=== PATIENT | female | born 1940 | race Caucasian/White ===

== ENCOUNTER 2018-05-05 08:30 | Inpatient (IN) ==
--- NOTE | 2018-05-05 08:52 | ED ---
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 Continued evolution of the acute infarct involving the left temporoparietal lobe. There is probable hemorrhagic conversion centrally within the area of infarction which measures 3.8 cm in size. No midline shift is noted. . Head CT 05/08/18 00:00 Remote left cerebellar lacunar infarcts. There is hypodensity identified in the left temporal region again seen and not significantly changed. There are no fractures. There is no hyperdense hemorrhage seen. CONCLUSION: 1. Left temporal occipital infarct again seen with edema. 2. No hemorrhage. . Head CT 05/10/18 06:00 CONCLUSION: 1. Continued evolution of left temporal lobe infarct without intercurrent hemorrhage or significant new mass effect. . ECG Data EKG Prior to Arrival: No Attestation: I personally reviewed and interpreted this ECG as follows: Prior ECG tracings: not available for review Interpretation: Normal sinus rhythm, 63 bpm, PACs noted. Left atrial enlargement, Discharge Plan Discharge Disposition Patient Disposition: 30 Still Patient Discharge Condition Condition: Stable Discharge Order Discharge Orders: Discharge Order (Routine); Ordered 05/11/18 Ordered By: Jamal Cardona Discharge Details Anticipated Discharge Date: 05/11/18 Discharge Comment: Will need outpt speech therapy Diagnosis: CVA (cerebral vascular accident) Physicians Team ED Provider: Netpali Rose Primary Care Provider: Serge Black Attending Provider: Jamal Cardona Other Providers: Igor Young ; Zoila Morley ; Wero Conteh ; Rosi Spencer ; Adalberto Monaco ; Anne-Marie Luna ; Benito Garcia Status ED Status: Left Department Discharge Information Discharge Date/Time: 05/05/18 12:59
[2018-05-05 09:03] LABS: Baso % (Auto) 0.2 % (0.0-2.0); Eos # (Auto) 0.1 th/mm3 (0.0-0.4); Hematocrit 42.9 % (35.0-46.0); Hemoglobin 14.6 gm/dL (11.6-15.3); Lymph # (Auto) 1.1 th/mm3 (1.0-4.8); Mean Corpuscular Hemoglobin 30.8 pg (27.0-34.0); Mean Corpuscular Volume 90.8 fL (80.0-100.0); Mean Platelet Volume 8.3 fL (7.0-11.0); Mono # (Auto) 0.6 th/mm3 (0.0-0.9); Neut # (Auto) 6.4 th/mm3 (1.8-7.7); Neut % (Auto) 78.8 % (16.0-70.0); Platelet Count 274 th/mm3 (150-450); Red Blood Count 4.72 mil/mm3 (4.00-5.30); Red Cell Distribution Width 13.1 % (11.6-17.2); White Blood Count 8.2 th/mm3 (4.0-11.0)
[2018-05-05 09:09] LABS: Chloride 99 meq/L (98-107); Potassium 3.6 meq/L (3.5-5.1); Sodium 133 meq/L (136-145)
[2018-05-05 09:12] LABS: Albumin 3.8 g/dL (3.4-5.0); Anion Gap 10 meq/L (5-15); Calcium 8.9 mg/dL (8.5-10.1); Carbon Dioxide 24.2 meq/L (21.0-32.0)
[2018-05-05 09:13] LABS: Blood Urea Nitrogen 11 mg/dL (7-18); Glucose,Random 126 mg/dL (74-106)
[2018-05-05 09:14] LABS: Lipase 130 U/L (73-393)
--- NOTE | 2018-05-05 09:15 | XR ---
EXAM DATE: 05/05/2018 9:10 AM EDT AGE/SEX: 77 years / Female INDICATIONS: Chest pain. CLINICAL DATA: This is the patient's initial encounter. Patient reports that signs and symptoms have been present for 2 days and indicates a pain score of 2/10. MEDICAL/SURGICAL HISTORY: None. Appendectomy. COMPARISON: No prior exams available for comparison. FINDINGS: A single AP view of the chest demonstrates the lungs to be symmetrically aerated without evidence of mass, infiltrate or effusion. The cardiomediastinal contours are unremarkable. Osseous structures a re intact. Possible gallstone. CONCLUSION: Negative examination. Electronically signed by: Koby Hall MD 05/05/2018 9:14 AM EDT
[2018-05-05 09:16] LABS: Alanine Aminotransferase 27 U/L (10-53); Aspartate Aminotransferase 21 U/L (15-37); Glomerular Filtration Rate 65 mL/min (>89)
--- NOTE | 2018-05-05 09:16 | CT ---
EXAM DATE: 05/05/2018 9:10 AM EDT AGE/SEX: 77 years / Female INDICATIONS: Altered mental status. Short term memory loss. Cephalgia. CLINICAL DATA: This is the patient's initial encounter. Patient reports that signs and symptoms have been present for 1 day and indicates a pain score of 5/10. MEDICAL/SURGICAL HISTORY: None. Appendectomy. RADIATION DOSE: 59.54 CTDI (mGy) COMPARISON: No prior exams available for comparison. TECHNIQUE: CT of the head without contrast. Using automated exposure control and adjustment of the mA and/or kV according to patient size, radiation dose was kept as low as reasonably achievable to ob tain optimal diagnostic quality images. DICOM format image data is available electronically for revi ew and comparison. FINDINGS: Cerebrum: There is evidence of cytotoxic edema involving the left temporoparietal lobe consistent wi th possible acute infarct. Underlying lesion with adjacent edema is also the differential. MRI of the brain with and without contrast would be helpful for further characterization of this process. There is no acute hemorrhage, midline shift or extra-axial bleed. The ventricles are normal in size shape and position for the patient's age. Posterior Fossa: The cerebellum and brainstem are intact. The 4th ventricle is midline. The cerebe llopontine angle is unremarkable. Extracranial: The visualized portion of the orbits is intact. Skull: The calvaria is intact. No evidence of skull fracture. CONCLUSION: 1. Evidence of cytotoxic edema involving the left temporoparietal lobe consistent with possible acut e infarct. Underlying lesion with adjacent edema is also the differential. MRI of the brain with and without contrast would be helpful for further characterization of this process. 2. No acute hemorrhage, midline shift or extra-axial bleed. . Electronically signed by: John Yoder MD 05/05/2018 9:15 AM EDT
[2018-05-05 09:17] LABS: Total Protein 7.4 g/dL (6.4-8.2)
[2018-05-05 09:18] LABS: Alkaline Phosphatase 67 U/L (45-117)
[2018-05-05 09:20] LABS: Activated Partial Thrombo Time 25.2 sec (24.3-30.1); Prothrombin Time 10.6 sec (9.8-11.6)
[2018-05-05 09:24] LABS: Creatine Kinase 62 U/L (26-192)
--- NOTE | 2018-05-05 10:22 | CT ---
EXAM DATE: 05/05/2018 10:14 AM EDT AGE/SEX: 77 years / Female INDICATIONS: Altered mental status. Abnormal CT brain w/o. CLINICAL DATA: This is the patient's initial encounter. Patient reports that signs and symptoms have been present for 1 day and indicates a pain score of 5/10. MEDICAL/SURGICAL HISTORY: None. Appendectomy. RADIATION DOSE: 42.23 CTDI (mGy) COMPARISON: [facility], CT HEAD W/O CONTRAST, 05/05/2018. . TECHNIQUE: Volumetric scanning was performed using a multi-row detector CT scanner during bolus infu iris of 85 ml Omnipaque 350 (iohexol) nonionic water-soluble contrast as a cumulative dose for multi ple exams. The data was post processed with a variety of visualization algorithms including full vo lume maximum intensity projection, multi-planar sliding thin slab reformation, curved planar reformat ion, and surface rendering techniques. Using automated exposure control and adjustment of the mA and /or kV according to patient size, radiation dose was kept as low as reasonably achievable to obtain o ptimal diagnostic quality images. DICOM format image data is available electronically for review and comparison. FINDINGS: Anterior Circulation: Intracranial Carotid Arteries: Patent. SOFIA: Asymmetric small left A1 segment, likely hyperplastic. There is no evidence for aneurysm, vessel truncation or stenosis, and no evidence for vascular malformation. MCA: There is no evidence for aneurysm, vessel truncation or stenosis, and no evidence for vascular m alformation. Posterior Circulation: Distal Vertebral Arteries: Distal Vertebral arteries are symetrical and patent. Basilar Artery: There is no evidence for aneurysm, vessel truncation or stenosis, and no evidence for vascular malformation. PROPERTY CUSTODIAN and Cerebellar Branches: There is no evidence for aneurysm, vessel truncation or stenosis, and no evidence for vascular malformation. CONCLUSION: 1. Unremarkable head CT examination without evidence for large vessel occlusion. Electronically signed by: Juliocesar Mahmood MD 05/05/2018 10:20 AM EDT
--- NOTE | 2018-05-05 10:50 | CT ---
EXAM DATE: 05/05/2018 10:36 AM EDT AGE/SEX: 77 years / Female INDICATIONS: Altered mental status. Abnormal CT brain w/o. CLINICAL DATA: This is the patient's initial encounter. Patient reports that signs and symptoms have been present for 1 day and indicates a pain score of 5/10. MEDICAL/SURGICAL HISTORY: None. Appendectomy. RADIATION DOSE: 42.23 CTDI (mGy) ; Combined studies COMPARISON: No prior exams available for comparison. TECHNIQUE: Volumetric scanning was performed using a multirow detector CT scanner during bolus infus ion of 85 ml Omnipaque 350 (iohexol) nonionic water-soluble contrast as a cumulative dose for multip le exams. The data was postprocessed with a variety of visualization algorithms including full-volu me maximum intensity projection, multiplanar sliding thin-slab reformation, curved-planar reformation , and surface-rendering techniques. Using automated exposure control and adjustment of the mA and/or kV according to patient size, radiation dose was kept as low as reasonably achievable to obtain opti mal diagnostic quality images. DICOM format image data is available electronically for review and co mparison. FINDINGS: Aortic Arch: There is a three-vessel origin of the great vessels from the aorta. No evidence of ost ial narrowing Right Carotid: The common carotid artery is intact. The carotid bulb has a normal configuration wit hout ulceration or narrowing. The internal carotid artery lumen is smooth without stenosis. The ext ernal carotid artery is intact. Left Carotid: The common carotid artery is intact. The carotid bulb has a normal configuration with out ulceration or narrowing. The internal carotid artery lumen is smooth without stenosis. The exte rnal carotid artery is intact. Vertebrals: The vertebral arteries have a symmetric diameter. No stenotic lesions are seen. Percent stenosis is calculated using the diameter of the stenotic region over the diameter of the nor mal distal internal carotid artery. CONCLUSION: 1. Negative CTA Carotid. Electronically signed by: Koby Hall MD 05/05/2018 10:48 AM EDT
[2018-05-05] MEDS ORDERED: Dextrose 50% in Water 50 ML Vial IV.PUSH PRN (12:21)
[2018-05-05] MEDS ORDERED: Acetaminophen 325 MG Tablet PO PRN (12:27)
[2018-05-05] MEDS ORDERED: Docusate Sodium 100 MG Capsule PO PRN (12:27)
[2018-05-05] MEDS ORDERED: Aluminum/Magnesium/Simethacone Susp 30 ML UDC PO PRN (12:27)
[2018-05-05] MEDS ORDERED: Senna/Docusate Sodium 8.6/50 MG Tablet PO PRN (12:27)
[2018-05-05] MEDS: Sod Chloride 0.9% Inj 1,000 ML IV.CONT SCH (12:30)
--- NOTE | 2018-05-05 16:05 | P.HP ---
History of Present Illness Primary Care Physician: Serge Black Chief Complaint: Confusion History of Present Illness: This is a 77-year-old female who was brought in by her because of confusion. History is mainly taken from family members at bedside and nursing staff. is not available. She has history of hyperlipidemia and hypothyroidism. Started 2 days ago when she was noted to be confused and disoriented. Symptoms persisted prompting ER evaluation. No fever, chills, cough, abdominal pain, UTI symptoms and diarrhea. At this time she is awake but has receptive aphasia. She is intermittently following commands moving all extremities. Workup shows edema involving the left temporoparietal lobe consistent with possible acute infarct. NIH score of 3. Patient passed swallowing evaluation by speech therapy. All other systems reviewed negative. Inpatient Certification: I certify that the inpatient services were ordered in accordance with Medicare regulations governing the order. This includes certification that hospital inpatient services are reasonable and necessary and in the case of services not specified as inpatient-only under 42 CFR 419.22(n), that they are appropriately provided as inpatient services in accordance to with the 2-midnight benchmark under 43 CFR 412.3(e) Estimated Total Length of Stay (Days): 2 Plans for Post Hospital Care: Not yet determined Review of Systems All other systems reviewed negative except as stated in HPI PMFSH - History History Provided By: Significant Other - Medical History Medical History: Medical History (Last Reviewed 05/05/18 @ 16:02 by Lonnie Hedrick MD) Cataracts, bilateral Thyroid disease - Surgical History Surgical History: Surgical History (Last Reviewed 05/05/18 @ 16:02 by Lonnie Hedrick MD) History of appendectomy Previous back surgery - Family History Family History: Family History (Last Updated 05/05/18 @ 16:02 by Lonnie Hedrick MD) Other No history of stroke - Tobacco History Second Hand Smoke Exposure: No Smoking Status: Never smoker - Alcohol History How Often Do You Have a Drink Containing Alcohol: Never - Substance Use History Substance History: No History of Abuse - Travel History Recent Travel in the [facility] Within the Last 8 Weeks: No - Immunization History Tetanus Immunization: >5 Years Hx Influenza Vaccine This Season: Yes Medications and Allergies Active Medications: Active Medications Acetaminophen (Tylenol) 650 mg PO Q4H PRN PRN Reason: Temp > 100.4 Al Hydrox/Mg Hydrox/Simethicone (Mag-Al Plus Susp Liq) 30 ml PO Q6H PRN PRN Reason: DYSPEPSIA Al Hydroxide/Mg Hydroxide (Milk Of Magnesia Liq) 30 ml PO DAILY PRN PRN Reason: SEVERE CONSITIPATION Aspirin (Aspirin) 325 mg PO DAILY CORBY Calcium Carbonate (Tums Chew) 1,000 mg CHEW TID PRN PRN Reason: DYSPEPSIA Dextrose (D50w Vial) 50 ml IV.PUSH UNSCH PRN PRN Reason: PER HYPOGLYCEMIA PROTOCOL Docusate Sodium (Colace) 100 mg PO BID PRN PRN Reason: CONSTIPATION Enalaprilat (Vasotec Inj) 1.25 mg IV.PUSH Q4H PRN PRN Reason: For SBP > 220 or DBP > 120 Glucagon (Glucagon Inj) 1 mg OTHER UNSCH PRN PRN Reason: for Hypoglycemia Protocol Sodium Chloride (Ns Inj) 1,000 mls @ 70 mls/hr IV.CONT .[id number] CORBY Insulin Aspart (Novolog Insulin Correctional Sugar Inj) 0 unit SQ ACHS CORBY; Protocol Ondansetron HCl (Zofran Inj) 4 mg IV.PUSH Q6H PRN PRN Reason: NAUSEA Senna/Docusate Sodium (Ana-Colace) 1 tab PO BID PRN PRN Reason: CONSTIPATION Sodium Chloride (Ns Flush) 2 ml IV.FLUSH BID CORBY Sodium Chloride (Ns Flush) 2 ml IV.FLUSH PRN PRN PRN Reason: FLUSH AFTER USING IV ACCESS Allergies Allergy/AdvReac Type Severity Reaction Status Date / Time No Known Allergies Allergy none Uncoded 05/05/18 09:35 Home Medications Medication Instructions Recorded Confirmed Type atorvastatin 20 mg PO DAILY 05/05/18 05/05/18 History Exam Vital signs: Vital Signs 05/05/18 08:48 05/05/18 08:49 05/05/18 09:00 Temperature 98.5 F Pulse Rate 62 Respiratory Rate 16 Blood Pressure 139/67 Pulse Oximetry 96 96 95 05/05/18 09:25 05/05/18 10:40 05/05/18 11:23 Temperature Pulse Rate 57 L 62 61 Respiratory Rate 16 16 17 Blood Pressure 123/71 117/58 L 117/58 L Pulse Oximetry 95 96 97 05/05/18 12:21 05/05/18 15:15 Temperature Pulse Rate 65 Respiratory Rate 16 Blood Pressure 118/58 L Pulse Oximetry 98 Intake & Output 05/04/18 05/05/18 05/05/18 18:59 06:59 18:59 Weight 63 kg Narrative: GENERAL: Well-developed, well-nourished in no distress SKIN: Warm and dry. HEAD: Atraumatic. Normocephalic. EYES: Pupils equal and round. No scleral icterus. No injection or drainage. ENT: No nasal bleeding or discharge. Mucous membranes pink and moist. NECK: Trachea midline. No JVD. CARDIOVASCULAR: Regular rate and rhythm. RESPIRATORY: No accessory muscle use. Clear to auscultation. Breath sounds equal bilaterally. GASTROINTESTINAL: Abdomen soft, non-tender, nondistended. MUSCULOSKELETAL: Extremities without clubbing, cyanosis, or edema. No obvious deformities. NEUROLOGICAL: Awake and alert. No obvious cranial nerve deficits. Motor grossly within normal limits. Five out of 5 muscle strength in the arms and legs. Normal speech. She has expressive aphasia Results - Labs CBC & Chem 7: 05/05/18 08:58 05/05/18 08:58 Labs: Laboratory Results - last 24 hr 05/05/18 05/05/18 05/05/18 08:58 08:58 08:58 CBC w Diff Auto diff final WBC 8.2 RBC 4.72 Hgb 14.6 Hct 42.9 MCV 90.8 MCH 30.8 MCHC 34.0 RDW 13.1 Plt Count 274 MPV 8.3 Neut % (Auto) 78.8 H Lymph % (Auto) 13.0 [place] % (Auto) 7.0 Eos % (Auto) 1.0 Baso % (Auto) 0.2 Neut # (Auto) 6.4 Lymph # (Auto) 1.1 [place] # (Auto) 0.6 Eos # (Auto) 0.1 Baso # (Auto) 0.0 WBC Differential . Differential Comment . PT INR APTT Sodium Potassium Chloride Carbon Dioxide Anion Gap BUN Creatinine Estimated GFR POC Glucose Random Glucose Calcium Total Bilirubin AST ALT Alkaline Phosphatase Total Creatine Kinase Troponin I B-Natriuretic Peptide 67 Total Protein Albumin Lipase 130 Serum Alcohol Less than 3 05/05/18 05/05/18 05/05/18 08:58 08:58 12:47 CBC w Diff WBC RBC Hgb Hct MCV MCH MCHC RDW Plt Count MPV Neut % (Auto) Lymph % (Auto) [place] % (Auto) Eos % (Auto) Baso % (Auto) Neut # (Auto) Lymph # (Auto) [place] # (Auto) Eos # (Auto) Baso # (Auto) WBC Differential Differential Comment PT 10.6 INR 1.0 APTT 25.2 Sodium 133 L Potassium 3.6 Chloride 99 Carbon Dioxide 24.2 Anion Gap 10 BUN 11 Creatinine 0.85 Estimated GFR 65 L POC Glucose 102 Random Glucose 126 H Calcium 8.9 Total Bilirubin 0.7 AST 21 ALT 27 Alkaline Phosphatase 67 Total Creatine Kinase 62 Troponin I Less than 0.02 L B-Natriuretic Peptide Total Protein 7.4 Albumin 3.8 Lipase Serum Alcohol - Imaging Impressions Head CT 05/05/18 08:48 CONCLUSION: 1. Evidence of cytotoxic edema involving the left temporoparietal lobe consistent with possible acute infarct. Underlying lesion with adjacent edema is also the differential. MRI of the brain with and without contrast would be helpful for further characterization of this process. 2. No acute hemorrhage, midline shift or extra-axial bleed. . Chest X-Ray 05/05/18 08:49 CONCLUSION: Negative examination. Head CTA 05/05/18 09:32 CONCLUSION: 1. Unremarkable head CT examination without evidence for large vessel occlusion. Neck CTA 05/05/18 09:32 CONCLUSION: 1. Negative CTA Carotid. Caprini VTE Risk Assessment Caprini VTE Risk Assessment: Moderate/High Risk (score >= 2) Caprini Risk Assessment Model: Point Value = 1 Point Value = 2 Point Value = 3 Point Value = 5 Age 41-60 Minor surgery BMI > 25 kg/m2 Swollen legs Varicose veins or History of unexplained or recurrent spontaneous Oral contraceptives or hormone replacement Sepsis (< 1 month) Serious lung disease, including pneumonia (< 1 month) Abnormal pulmonary function Acute myocardial infarction Congestive heart failure (< 1 month) History of inflammatory bowel disease Medical patient at bed rest Age 61-74 Arthroscopic surgery Major open surgery (> 45 min) Laparoscopic surgery (> 45 min) Malignancy Confined to bed (> 72 hours) Immobilizing plaster cast Central venous access Age >= 75 History of VTE Family history of VTE Factor V Leiden Prothrombin [id number] Lupus anticoagulant Anticardiolipin antibodies Elevated serum homocysteine Heparin-induced thrombocytopenia Other congenital or acquired thrombophilia Stroke (< 1 month) Elective arthroplasty Hip, pelvis, or leg fracture Acute spinal cord injury (< 1 month) Prophylaxis Regimen: Total Risk Factor Score Risk Level Prophylaxis Regimen 0-1 Low Early ambulation 2 Moderate Order ONE of the following: *Sequential Compression Device (SCD) *Heparin 5000 units SQ BID 3-4 Higher Order ONE of the following medications: *Heparin 5000 units SQ TID *Enoxaparin/Lovenox 40 mg SQ daily (WT < 150 kg, CrCl > 30 mL/min) *Enoxaparin/Lovenox 30 mg SQ daily (WT < 150 kg, CrCl > 10-29 mL/min) *Enoxaparin/Lovenox 30 mg SQ BID (WT < 150 kg, CrCl > 30 mL/min) AND/OR *Sequential Compression Device (SCD) 5 or more Highest Order ONE of the following medications: *Heparin 5000 units SQ TID (Preferred with Epidurals) *Enoxaparin/Lovenox 40 mg SQ daily (WT < 150 kg, CrCl > 30 mL/min) *Enoxaparin/Lovenox 30 mg SQ daily (WT < 150 kg, CrCl > 10-29 mL/min) *Enoxaparin/Lovenox 30 mg SQ BID (WT < 150 kg, CrCl > 30 mL/min) AND *Sequential Compression Device (SCD) Assessment and Plan - Plan This is a 77-year-old female who was brought in by her because of confusion. History is mainly taken from family members at bedside and nursing staff. is not available. She has history of hyperlipidemia and hypothyroidism. Started 2 days ago when she was noted to be confused and disoriented. Acute CVA with cytotoxic edema involving the left temporoparietal. Admit patient for stroke workup. Permissive hypertension with IV fluids. Risk factor modification obtain A1c and lipid profile. Obtain MRI of the brain and echocardiogram. Monitor on telemetry. Consult neurology, PT, OT and ST DVT prophylaxis with SCD and early ambulation. Pharmacological prophylaxis when cleared by neurology. Discharge Planning: [facility] vs rehab
[2018-05-05] MEDS ORDERED: Gadobutrol PF 2 MMOL/2 ML Vial (for RAD) IV.SIG ONE (16:39)
--- NOTE | 2018-05-05 16:51 | MR ---
EXAM DATE: 05/05/2018 4:39 PM EDT AGE/SEX: 77 years / Female INDICATIONS: CVA. Lack of comprehension. CLINICAL DATA: This is the patient's initial encounter. Patient reports that signs and symptoms have been present for 1 day and indicates a pain score of 0/10. MEDICAL/SURGICAL HISTORY: None. Appendectomy. COMPARISON: [facility], CTA HEAD W CONTRAST W 3D, 05/05/2018. . TECHNIQUE: Multiplanar, multisequence examination of the brain was performed without and with 5.5 ml Gadavist (gadobutrol) contrast as a single exam dose. FINDINGS: Cerebrum: There is a large left temporal stroke measuring 3.5 x 6.8 cm across. Corresponds with a la rge area of cytotoxic edema on the FLAIR images and T2 images. No additional lesions are identified. White Matter: No significant signal abnormalities are seen in the white matter. Posterior Fossa: The cerebellum and brainstem are intact. The 4th ventricle is midline. The cerebel lopontine angle is unremarkable. The cerebellar tonsils are normal in position. Diffusion Imaging: Large abnormality left temporal lobe as described above Extracranial: The visuali zed portions of the orbits and paranasal sinuses are unremarkable. Post Contrast: No abnormal areas of parenchymal or dural enhancement. No evidence of blood-brain ba rrier breakdown. CONCLUSION: 1. Large left temporal stroke as described above. Corresponds well with the CT scan abnormality. The re is some decreased signal within the central areas of stroke on the gradient images. Electronically signed by: Koby Hall MD 05/05/2018 4:49 PM EDT
[2018-05-05] MEDS: Insulin NovoLOG Aspart Correctional Sugar Inj SQ SCH ×2 (19:15→22:20)
--- NOTE | 2018-05-05 21:59 | MG ---
cc: Nitesh Martinez MD EEG RECORD NUMBER: [id number] Asymmetric left hemispheric slowing, delta-theta frequencies, 20-50 microvolts. Right posterior rhythm showing 7-9 Hz activity with good anterior to posterior gradient. Polymorphic right frontotemporal slowing. Occasional mild phase reversal, example EPOC 103. Limited driving with photic stimulation on the left. Single lead EKG showing sinus rhythm. INTERPRETATION: Moderate focal slowing, left frontotemporal region. Clinical correlation. MD ISIDRO Bender/tiana , 09:29 PM , 09:34 PM
--- NOTE | 2018-05-05 22:04 | MB ---
cc: Igor Young MD, PhD DATE: 05/05/2018 REASON FOR CONSULTATION: Stroke. HISTORY OF PRESENT ILLNESS: Ms. Jackson is a 77-year-old female who was in her usual state of health until yesterday at 7:30 p.m. when she developed difficulty with her speech, trouble with comprehension, and repeating phrases over again. No focal deficit was identified. She presented to the emergency room today. NIH stroke scale was 3. Because of the aphasia, we obtained a CT angiogram. We also obtained a CT of the brain. CT of the head showed cytotoxic edema in the left temporoparietal lobe, consistent with acute stroke. No hemorrhage was identified. CT angiogram of the brain was unremarkable for any large vessel occlusion, and CT angiogram of the neck was normal. Because of the negative CTA of the brain, we did not proceed with CT perfusion study. PAST MEDICAL HISTORY: She has a history of cataracts, thyroid disease, appendectomy, back surgery. SOCIAL HISTORY: She does not smoke. Alcohol intake is rare. CURRENT MEDICATIONS: 1. Tylenol. 2. Milk of magnesia. 3. Aspirin 325 mg daily. 4. Lipitor 20 mg daily. PHYSICAL EXAMINATION: VITAL SIGNS: Blood pressure is 106/51, pulse is 58, respiratory rate is 16. She is in normal sinus rhythm. NEUROLOGIC: Higher cortical functions are alert. She has receptive aphasia, difficulty following commands. She repeats phrases. Cranial nerves intact. Motor exam: No focal deficit. Reflexes are symmetric. IMAGING: As noted above. LABORATORY DATA: White count is 8200, hemoglobin 14.6, hematocrit 42.9%, platelet count 274,000. PT 10.6, INR 1, aPTT 25.2. Sodium is 133, potassium 3.6, chloride 99, BUN is 11, creatinine 0.85, GFR 65, glucose 126. AST 21, ALT 27. EKG: Sinus rhythm. MRI of the brain: Large left temporal stroke. No hemorrhage. It measures 3.5 x 6.8 cm across. Fourth ventricle is midline. IMPRESSION: Left temporal lobe/parietal lobe infarction. The patient was not a candidate for IV tPA as she was well out of the 4-1/2 hour window. We did evaluate her further for the possibility of large vessel occlusion, but there was none seen on the CT angiogram. Therefore, she did not require further evaluation with CT perfusion. RECOMMENDATION: Continue head of bed flat overnight. Continue the aspirin. We will evaluate further with echocardiogram. Monitor cardiac telemetry to rule out atrial fibrillation. We will also check lipid panel. Igor Young MD, PhD MARI/tiana , 09:29 PM , 09:38 PM
[2018-05-05] MEDS ORDERED: Aspirin 300 MG Supp RECTAL SCH (22:30)
[2018-05-06 05:12] LABS: Potassium 3.5 meq/L (3.5-5.1)
[2018-05-06 05:15] LABS: Calcium 8.2 mg/dL (8.5-10.1); Carbon Dioxide 25.4 meq/L (21.0-32.0)
[2018-05-06] MEDS: Sod Chloride 0.9% Inj 1,000 ML IV.CONT SCH ×2 (05:19→16:37)
[2018-05-06] MEDS ORDERED: Aspirin 325 MG Tablet PO SCH (09:00)
[2018-05-06] MEDS ORDERED: Aspirin 300 MG Supp RECTAL SCH (09:00)
--- NOTE | 2018-05-06 10:31 | ECHRPT ---
Indication: CVA/TIA CONCLUSIONS Normal left ventricular size. Wall thickness is normal. The left ventricular systolic function is normal with an estimated ejection fraction in the range of 55-60%. Trace mitral valve regurgitation. Mild aortic valve regurgitation. There is mild tricuspid valve regurgitation. The estimated pulmonary arterial pressure is 31 mmHg. BP: / HR: Rhythm: Sinus Technical Quality:Fair FINDINGS LEFT VENTRICLE Normal left ventricular size. Wall thickness is normal. The left ventricular systolic function is normal with an estimated ejection fraction in the range of 55-60%. RIGHT VENTRICLE Normal right ventricular size and systolic function. LEFT ATRIUM The left atrial size is normal. RIGHT ATRIUM The right atrial size is normal. ATRIAL SEPTUM No atrial level shunt is demonstrated by color flow Doppler interrogation. AORTA The aortic root and proximal ascending aorta are normal in size on limited imaging. MITRAL VALVE Trace mitral valve regurgitation. AORTIC VALVE Mild aortic valve regurgitation. TRICUSPID VALVE There is mild tricuspid valve regurgitation. The estimated pulmonary arterial pressure is 31 mmHg. PULMONARY VALVE No pulmonary valve regurgitation or stenosis. VESSELS The inferior vena cava is normal in size. PERICARDIUM No pericardial effusion. Natalie Dominguez MD, FACC (Electronically Signed) Final Date:06 May 2018 10:30
[2018-05-06 10:50] LABS: Chol/HDL Ratio 3.05 Ratio; HDL Cholesterol 44.8 mg/dL (40.0-60.0)
[2018-05-06] MEDS: Insulin NovoLOG Aspart Correctional Sugar Inj SQ SCH ×3 (11:03→16:38)
--- NOTE | 2018-05-06 11:12 | P.CONCC ---
History of Present Illness Service: Critical care Consult date: 05/06/18 Requesting Physician: Igor Young Reason for Consult: Large left temporal stroke Primary Care Provider: Serge Black Chief Complaint: Confusion History of Present Illness: This is a 77-year-old female with history of dyslipidemia and hypothyroidism who was initially brought to the [place] emergency department by her for confusion. Apparently symptoms started 2 days ago when she was noted to be confused and disoriented. She presented with receptive aphasia also per admit H&P. CT of the brain on admission showed cytotoxic edema involving the left temporoparietal lobe consistent with acute infarct. Because of unknown duration of onset patient was not given TPA. Patient was admitted to [place] ICU under hospitalist service. An MRI of the brain was ordered by neurology Dr. Young showed a Large left temporal stroke MRI. Because of the risk of further swelling with possible mass-effect and risk of hemorrhagic conversion, patient was transferred to [facility] for neurosurgical backup and critical care consult was requested I evaluated the patient in the [facility]. She is lying in bed protecting airway. She is oriented to person but appears to have receptive and expressive aphasia. Review of Systems unobtainable due to mental status PMFSH - History History Provided By: Significant Other - Medical History Medical History: Medical History (Last Reviewed 05/06/18 @ 11:34 by Rosi Spencer MD) Cataracts, bilateral Thyroid disease - Surgical History Surgical History: Surgical History (Last Reviewed 05/06/18 @ 11:34 by Rosi Spencer MD) History of appendectomy Previous back surgery - Family History Family History: Family History (Last Updated 05/05/18 @ 16:02 by Lonnie Hedrick MD) Other No history of stroke - Tobacco History Second Hand Smoke Exposure: No Smoking Status: Never smoker - Alcohol History How Often Do You Have a Drink Containing Alcohol: Never - Substance Use History Substance History: No History of Abuse - Travel History Recent Travel in the [facility] Within the Last 8 Weeks: No - Immunization History Tetanus Immunization: >5 Years Hx Influenza Vaccine This Season: Yes Medications and Allergies Active Medications: Active Medications Acetaminophen (Tylenol) 650 mg PO Q4H PRN PRN Reason: Temp > 100.4 Al Hydrox/Mg Hydrox/Simethicone (Mag-Al Plus Susp Liq) 30 ml PO Q6H PRN PRN Reason: DYSPEPSIA Al Hydroxide/Mg Hydroxide (Milk Of Anatoliy Wills) 30 ml PO DAILY PRN PRN Reason: SEVERE CONSITIPATION Aspirin (Aspirin Supp) 300 mg RECTAL DAILY [facility] Atorvastatin Calcium (Lipitor) 20 mg PO DAILY [facility] Last Admin: 05/06/18 11:03 Dose: Not Given Calcium Carbonate (Tums Chew) 1,000 mg CHEW TID PRN PRN Reason: DYSPEPSIA Chlorhexidine Gluconate (Chlorhexidine 2% Cloth) 3 pack TOPICAL DAILY@0400 [facility] Stop: 05/12/18 03:59 Chlorhexidine Gluconate (Chlorhexidine 2% Cloth) 3 pack TOPICAL DAILY@0400 PRN PRN Reason: Extra cloth needed Stop: 05/12/18 03:59 Dextrose (D50w Vial) 50 ml IV.PUSH UNSCH PRN PRN Reason: PER HYPOGLYCEMIA PROTOCOL Docusate Sodium (Colace) 100 mg PO BID PRN PRN Reason: CONSTIPATION Enalaprilat (Vasotec Inj) 1.25 mg IV.PUSH Q4H PRN PRN Reason: For SBP > 220 or DBP > 120 Glucagon (Glucagon Inj) 1 mg OTHER UNSCH PRN PRN Reason: for Hypoglycemia Protocol Sodium Chloride (Ns Inj) 1,000 mls @ 70 mls/hr IV.CONT .[id number] [facility] Last Admin: 05/06/18 05:19 Dose: 70 mls/hr Insulin Aspart (Novolog Insulin Correctional Sugar Inj) 0 unit SQ ACHS [facility]; Protocol Last Admin: 05/06/18 11:03 Dose: Not Given Ondansetron HCl (Zofran Inj) 4 mg IV.PUSH Q6H PRN PRN Reason: NAUSEA Senna/Docusate Sodium (Ana-Colace) 1 tab PO BID PRN PRN Reason: CONSTIPATION Sodium Chloride (Ns Flush) 2 ml IV.FLUSH BID [facility] Last Admin: 05/06/18 11:04 Dose: 2 ml Sodium Chloride (Ns Flush) 2 ml IV.FLUSH PRN PRN PRN Reason: FLUSH AFTER USING IV ACCESS Allergies Allergy/AdvReac Type Severity Reaction Status Date / Time No Known Allergies Allergy none Uncoded 05/05/18 09:35 Home Medications Medication Instructions Recorded Confirmed Type atorvastatin 20 mg PO DAILY 05/05/18 05/05/18 History Physical Exam Vital signs: Vital Signs 05/05/18 11:23 05/05/18 12:21 05/05/18 12:22 Temperature Pulse Rate 61 65 57 L Respiratory Rate 17 16 Blood Pressure 117/58 L 118/58 L Pulse Oximetry 97 05/05/18 14:00 05/05/18 14:30 05/05/18 15:00 Temperature Pulse Rate 58 L 60 62 Respiratory Rate 13 11 L 17 Blood Pressure 115/55 L 116/52 L 117/53 L Pulse Oximetry 95 94 L 95 05/05/18 15:15 05/05/18 15:30 05/05/18 17:00 Temperature Pulse Rate 56 L 52 L Respiratory Rate 28 H 14 Blood Pressure 140/55 L 84/47 L Pulse Oximetry 98 95 94 L 05/05/18 17:07 05/05/18 17:32 05/05/18 18:00 Temperature Pulse Rate 58 L 58 L 60 Respiratory Rate 16 12 20 Blood Pressure 106/51 L 113/48 L 110/52 L Pulse Oximetry 94 L 95 96 05/05/18 18:32 05/05/18 19:00 05/05/18 19:32 Temperature Pulse Rate 58 L 68 64 Respiratory Rate 30 H 21 17 Blood Pressure 113/49 L 111/47 L Pulse Oximetry 95 92 L 93 L 05/05/18 20:00 05/05/18 20:32 05/05/18 21:02 Temperature 97.6 F Pulse Rate 60 60 58 L Respiratory Rate 18 18 19 Blood Pressure 99/43 L 103/47 L 89/46 L Pulse Oximetry 93 L 93 L 94 L 05/05/18 21:17 05/05/18 21:18 05/05/18 22:04 Temperature Pulse Rate 60 58 L 60 Respiratory Rate 23 15 26 H Blood Pressure 113/48 L 117/59 L 101/56 L Pulse Oximetry 95 95 92 L 05/05/18 23:00 05/06/18 00:00 05/06/18 01:00 Temperature 98 F Pulse Rate 58 L 50 L 48 L Respiratory Rate 18 18 17 Blood Pressure 107/47 L 87/51 L 107/48 L Pulse Oximetry 95 94 L 94 L 05/06/18 02:02 05/06/18 03:00 05/06/18 04:00 Temperature 97.5 F L Pulse Rate 48 L 48 L 46 L Respiratory Rate 24 16 13 Blood Pressure 93/53 L 101/47 L 96/49 L Pulse Oximetry 95 94 L 95 05/06/18 05:00 05/06/18 06:00 05/06/18 07:25 Temperature Pulse Rate 52 L 50 L Respiratory Rate 17 14 Blood Pressure 110/55 L 96/42 L Pulse Oximetry 93 L 94 L 98 05/06/18 09:45 Temperature 98.2 F Pulse Rate 53 L Respiratory Rate 18 Blood Pressure 133/58 L Pulse Oximetry 96 Intake & Output 05/05/18 05/06/18 05/06/18 18:59 06:59 18:59 Intake Total 240 / 240 1000 / 1000 Output Total 300 / 300 600 / 600 Balance -60 / -60 400 / 400 Weight 57.9 kg 59.9 kg Intake: IV 1000 / 1000 NS Inj 1,000 ML @ 70 mls/hr IV. 1000 / 1000 CONT .[id number] [facility] Rx#: [id number] Oral 240 / 240 Output: Urine 300 / 300 600 / 600 Other: Date of Last Bowel Movement 05/05/18 05/05/18 05/05/18 Weight On Admission 57.9 kg Narrative: GENERAL: Well-developed, well-nourished lying in bed oriented to person only SKIN: Warm and dry. HEAD: Atraumatic. Normocephalic. EYES: Pupils equal and round. No scleral icterus. No injection or drainage. ENT: No nasal bleeding or discharge. Mucous membranes pink and moist. NECK: Trachea midline. No JVD. CARDIOVASCULAR: Regular rate and rhythm. RESPIRATORY: No accessory muscle use. Clear to auscultation. Breath sounds equal bilaterally. GASTROINTESTINAL: Abdomen soft, non-tender, nondistended. MUSCULOSKELETAL: Extremities without clubbing, cyanosis, or edema. No obvious deformities. NEUROLOGICAL: Awake and alert, able to state her first name cannot tell me her last name. No obvious cranial nerve deficits. Motor grossly intact bilaterally. + Receptive and expressive aphasia. Cannot remember her last name cannot remember where she is OR today date Septic Shock Reassessment Septic shock perfusion: reassessment completed Assessment and Plan - Assessment and Plan Plan: NEURO: Acute left temporal stroke Expressive and receptive aphasia -MRI and CT reviewed shows acute left temporal stroke -Time of onset unclear and patient did not receive TPA, Also CTA negative -Neurology Dr. Young, continue rectal aspirin -Permissive hypertension, treat hypertension systolic more than 220, diastolic more than 120 -PT/OT/speech -Continue statins -Watch closely for swelling and mass-effect, watch closely for airway protection -TSH is normal, check B12 level RESP: -DuoNeb every 6 hours as needed -Aggressive pulmonary toilet. EzPAP q6 -Incentive spirometry every hour CV: -Normal saline IV fluids 70 ml per hour -CTA brain and neck did not show any significant vascular lesions -Blood pressure target as above -Increase Lipitor to 40 mg nightly GI: -Speech pathology consult, diet per speech recommendation, IV famotidine : -Monitor renal function closely. ID: -Monitor closely for infection, check UA HEME: -Monitor CBC, coags ENDO: -Electrolyte replacement per protocol -Sliding scale insulin if needed PROPH: -Bilateral lower extremity SCDs. Avoid chemical DVT prophylaxis due to risk of hemorrhagic conversion LINES: -Utilize peripheral IVs, central line if needed CC time 37 min At this time patient is critically ill. She has a large left temporal stroke and is at risk of further swelling with mass-effect and also for hemorrhagic conversion. Monitor neuro status closely. Continue ICU care. If she develops mass-effect or midline shift may need neurosurgical consult for decompression. D /W Dr. Young Code Status: Full Discussed Condition With: Full
[2018-05-06] MEDS ORDERED: Potassium Chlor 40 mEq Premix 40 MEQ/100 ML PIGGYBACK IV.SIG PRN ×2 (11:15)
[2018-05-06] MEDS ORDERED: Magnesium Sulfate Inj 2 GM in Sodium Chlor 0.9% Inj 96 ML IV.SIG PRN (11:15)
[2018-05-06] MEDS ORDERED: Potassium Chloride 25 MEQ Effervescent Tablet PO PRN (11:15)
[2018-05-06] MEDS ORDERED: Potassium Phosphate Inj 30 MMOL in Sodium Chlor 0.9% Inj 250 ML IV.SIG PRN (11:15)
[2018-05-06] MEDS ORDERED: Sodium Phosphate Inj 30 MMOL in Sodium Chlor 0.9% Inj 250 ML IV.SIG PRN (11:15)
[2018-05-06] MEDS ORDERED: Magnesium Oxide 400 MG Tablet PO PRN (11:15)
[2018-05-06] MEDS ORDERED: Magnesium Sulfate Inj 4 GM in Sodium Chlor 0.9% Inj 92 ML IV.SIG PRN (11:15)
[2018-05-06] MEDS ORDERED: Potassium Phosphate 500 MG Soluble Tablet PO PRN ×2 (11:15)
[2018-05-06] MEDS ORDERED: Potassium Chlor 20 mEq Premix 20 MEQ/100 ML PIGGYBACK IV.SIG PRN ×2 (11:15)
[2018-05-06 16:21] LABS: Hemoglobin A1c 5.8 % (4.3-6.0)
--- NOTE | 2018-05-06 17:18 | ECG ---
Date Performed: 05/05/2018 Time Performed: 08:37:05 PTAGE: 77 years EKG: Sinus rhythm WITH OCCASIONAL SUPRAVENTRICULAR PREMATURE COMPLEXES POSSIBLE LEFT ATRIAL ENLARGEMENT POSSIBLE RIGHT VENTRICULAR CONDUCTION DELAY BORDERLINE ECG NO PREVIOUS TRACING DOCTOR: Alvaro Gutiérrez Interpretating Date/Time 05/06/2018 17:16:11
[2018-05-06 17:36] LABS: Amorphous Sediment,Urine Rare /hpf; Bacteria,Urine Many /hpf; Bilirubin,Urine Negative (Negative); Clarity,Urine Cloudy (Clear); Color,Urine Yellow (Yellw/Straw); Glucose,Urine (UA) Negative (Negative); Hyaline Casts,Urine 2 /lpf (0-3); Leukocyte Esterase,Urine Large (Negative); Mucus,Urine Few /lpf (Occasional); Nitrite,Urine Positive (Negative); Specific Gravity,Urine 1.013 (1.002-1.035); Squamous Epithelial Cell,Urine <1 /hpf (0-5)
--- NOTE | 2018-05-06 21:29 | P.PNNEU ---
Subjective Subjective Comments: No new c/o Active Medications: Active Medications Acetaminophen (Tylenol) 650 mg PO Q4H PRN PRN Reason: Temp > 100.4 Al Hydrox/Mg Hydrox/Simethicone (Mag-Al Plus Susp Liq) 30 ml PO Q6H PRN PRN Reason: DYSPEPSIA Al Hydroxide/Mg Hydroxide (Milk Of Magnesia Liq) 30 ml PO DAILY PRN PRN Reason: SEVERE CONSITIPATION Aspirin (Aspirin Supp) 300 mg RECTAL DAILY [facility] Last Admin: 05/06/18 11:26 Dose: 300 mg Atorvastatin Calcium (Lipitor) 40 mg PO DAILY [facility] Last Admin: 05/06/18 16:37 Dose: Not Given Calcium Carbonate (Tums Chew) 1,000 mg CHEW TID PRN PRN Reason: DYSPEPSIA Chlorhexidine Gluconate (Chlorhexidine 2% Cloth) 3 pack TOPICAL DAILY@0400 [facility] Stop: 05/12/18 03:59 Chlorhexidine Gluconate (Chlorhexidine 2% Cloth) 3 pack TOPICAL DAILY@0400 PRN PRN Reason: Extra cloth needed Stop: 05/12/18 03:59 Docusate Sodium (Colace) 100 mg PO BID PRN PRN Reason: CONSTIPATION Enalaprilat (Vasotec Inj) 1.25 mg IV.PUSH Q4H PRN PRN Reason: For SBP > 220 or DBP > 120 Sodium Chloride (Ns Inj) 1,000 mls @ 70 mls/hr IV.CONT .[id number] [facility] Last Infusion: 05/06/18 20:25 Dose: 70 mls/hr Potassium Chloride (Kcl 40 Meq Premix Inj) 40 meq in 100 mls @ 25 mls/hr IV.SIG Q2H PRN PRN Reason: For Potassium 2.8 - 3.2 mEq/L Potassium Chloride (Kcl 20 Meq Premix Inj) 20 meq in 100 mls @ 50 mls/hr IV.SIG Q2H PRN PRN Reason: For Potassium 3.3 - 3.5 mEq/L Potassium Chloride (Kcl 40 Meq Premix Inj) 40 meq in 100 mls @ 25 mls/hr IV.SIG UNSCH PRN PRN Reason: For Potassium 3.3 - 3.5 mEq/L Sodium Phosphate 30 mmol/ (Sodium Chloride) 260 mls @ 42 mls/hr IV.SIG UNSCH PRN PRN Reason: For Phosphorus < 2.5 mg/dL Potassium Phosphate 30 mmol/ (Sodium Chloride) 260 mls @ 42 mls/hr IV.SIG UNSCH PRN PRN Reason: SEE LABEL COMMENTS Magnesium Sulfate 4 gm/ Sodium (Chloride) 100 mls @ 50 mls/hr IV.SIG UNSCH PRN PRN Reason: For Magnesium 0.9 - 1.1 mg/dL Potassium Chloride (Kcl 20 Meq Premix Inj) 20 meq in 100 mls @ 50 mls/hr IV.SIG Q2H PRN PRN Reason: For Potassium 2.8 - 3.2 mEq/L Magnesium Sulfate 2 gm/ Sodium (Chloride) 100 mls @ 50 mls/hr IV.SIG UNSCH PRN PRN Reason: For Magnesium 1.2 - 1.6 mg/dL Magnesium Oxide (Mag-Ox) 800 mg PO UNSCH PRN PRN Reason: For Magnesium 1.2 - 1.6 mg/dL Ondansetron HCl (Zofran Inj) 4 mg IV.PUSH Q6H PRN PRN Reason: NAUSEA Potassium Bicarb/Potassium Chloride (K-Lyte Cl Eff) 50 meq PO UNSCH PRN PRN Reason: For Potassium 3.3 - 3.5 mEq/L Potassium Phosphate (K-Phos Original) 2,000 mg PO Q4H PRN PRN Reason: Phosphorus Less Than 2.5 mg/dL Potassium Phosphate (K-Phos Original) 2,000 mg PO UNSCH PRN PRN Reason: SEE LABEL COMMENTS Senna/Docusate Sodium (Ana-Colace) 1 tab PO BID PRN PRN Reason: CONSTIPATION Sodium Chloride (Ns Flush) 2 ml IV.FLUSH BID [facility] Last Admin: 05/06/18 20:55 Dose: 2 ml Sodium Chloride (Ns Flush) 2 ml IV.FLUSH PRN PRN PRN Reason: FLUSH AFTER USING IV ACCESS Allergies/Adverse Reactions: Allergies Allergy/AdvReac Type Severity Reaction Status Date / Time No Known Allergies Allergy none Uncoded 05/05/18 09:35 Physical Exam Vital signs: Vital Signs 05/05/18 22:04 05/05/18 23:00 05/06/18 00:00 Temperature 98 F Pulse Rate 60 58 L 50 L Respiratory Rate 26 H 18 18 Blood Pressure 101/56 L 107/47 L 87/51 L Pulse Oximetry 92 L 95 94 L 05/06/18 01:00 05/06/18 02:02 05/06/18 03:00 Temperature Pulse Rate 48 L 48 L 48 L Respiratory Rate 17 24 16 Blood Pressure 107/48 L 93/53 L 101/47 L Pulse Oximetry 94 L 95 94 L 05/06/18 04:00 05/06/18 05:00 05/06/18 06:00 Temperature 97.5 F L Pulse Rate 46 L 52 L 50 L Respiratory Rate 13 17 14 Blood Pressure 96/49 L 110/55 L 96/42 L Pulse Oximetry 95 93 L 94 L 05/06/18 07:25 05/06/18 08:00 05/06/18 09:00 Temperature Pulse Rate 54 L 56 L Respiratory Rate 15 20 Blood Pressure 111/47 L 113/49 L Pulse Oximetry 98 94 L 95 05/06/18 09:45 05/06/18 11:45 05/06/18 12:00 Temperature 98.2 F Pulse Rate 53 L 48 L Respiratory Rate 18 18 13 Blood Pressure 133/58 L Pulse Oximetry 96 97 05/06/18 13:45 05/06/18 15:45 05/06/18 16:00 Temperature 98.5 F Pulse Rate 50 L 46 L 52 L Respiratory Rate 18 18 16 Blood Pressure 124/59 L 111/54 L 128/61 Pulse Oximetry 96 96 96 Intake & Output 05/06/18 05/06/18 05/07/18 06:59 18:59 06:59 Intake Total 1000 / 1000 598 / 598 Output Total 600 / 600 300 / 300 Balance 400 / 400 -300 / -300 598 / 598 Weight 59.9 kg Intake: IV 1000 / 1000 598 / 598 NS Inj 1,000 ML @ 70 mls/hr IV. 1000 / 1000 598 / 598 CONT .[id number] [facility] Rx#: [id number] Output: Urine 600 / 600 300 / 300 Other: Date of Last Bowel Movement 05/05/18 05/05/18 # Bowel Movements 0 - Routine Neurological Exam alert, speech is improved--more fluent and follows commands better CN intact MOTOR 5/5 BUE Objective Laboratory Results - last 24 hr 05/05/18 05/06/18 05/06/18 21:15 04:15 04:30 Sodium 137 Potassium 3.5 Chloride 104 Carbon Dioxide 25.4 Anion Gap 8 BUN 11 Creatinine 0.66 Estimated GFR 87 L POC Glucose 118 H Random Glucose 90 Hemoglobin A1c 5.8 Calcium 8.2 L Triglycerides 124 Cholesterol 137 LDL Cholesterol, Calc 67 HDL Cholesterol 44.8 Cholesterol/HDL Ratio 3.05 Vitamin B12 Urine Color Urine Clarity Urine pH Ur Specific [place] Urine Protein Urine Glucose (UA) Urine Ketones Urine Occult Blood Urine Nitrate Urine Bilirubin Urine Urobilinogen Ur Leukocyte Esterase Urine RBC Urine WBC Ur Squamous Epith Cells Amorphous Sediment Urine Bacteria Hyaline Casts Urine Mucus Micro UA Comment Ur Microscopic Review Urine Culture Comments Nasal Screen MRSA (PCR) 05/06/18 05/06/18 05/06/18 04:30 08:34 11:44 Sodium Potassium Chloride Carbon Dioxide Anion Gap BUN Creatinine Estimated GFR POC Glucose 100 97 Random Glucose Hemoglobin A1c Calcium Triglycerides Cholesterol LDL Cholesterol, Calc HDL Cholesterol Cholesterol/HDL Ratio Vitamin B12 Urine Color Urine Clarity Urine pH Ur Specific [place] Urine Protein Urine Glucose (UA) Urine Ketones Urine Occult Blood Urine Nitrate Urine Bilirubin Urine Urobilinogen Ur Leukocyte Esterase Urine RBC Urine WBC Ur Squamous Epith Cells Amorphous Sediment Urine Bacteria Hyaline Casts Urine Mucus Micro UA Comment Ur Microscopic Review Urine Culture Comments Nasal Screen MRSA (PCR) Not detected 05/06/18 05/06/18 12:41 16:25 Sodium Potassium Chloride Carbon Dioxide Anion Gap BUN Creatinine Estimated GFR POC Glucose Random Glucose Hemoglobin A1c Calcium Triglycerides Cholesterol LDL Cholesterol, Calc HDL Cholesterol Cholesterol/HDL Ratio Vitamin B12 489 Urine Color Yellow Urine Clarity Cloudy H Urine pH 6.0 Ur Specific [place] 1.013 Urine Protein Negative Urine Glucose (UA) Negative Urine Ketones Negative Urine Occult Blood Negative Urine Nitrate Positive H Urine Bilirubin Negative Urine Urobilinogen Less than 2 Ur Leukocyte Esterase Large H Urine RBC 1 Urine WBC Ur Squamous Epith Cells <1 Amorphous Sediment Rare H Urine Bacteria Many H Hyaline Casts 2 Urine Mucus Few H Micro UA Comment Culture indicated Ur Microscopic Review Not Reportable Urine Culture Comments Culture indicated Nasal Screen MRSA (PCR) Diagnostic Tests: echo--no embolic source seen Review/Management - Diagnosis (1) CVA (cerebral vascular accident) Code(s): I63.9 - Cerebral infarction, unspecified Status: Acute Current Visit: Yes - Review/Management Plan: continue asa/ monitor cardiac telemetry close neurochecks. She was transferred to main hospital ICU due to large size of the stroke where there is neurosurgical coverage in event of increasing edema. At this point she is stable and slightly improved neurologically (1) CVA (cerebral vascular accident) Qualifiers: CVA mechanism: unspecified Qualified Code(s): I63.9 - Cerebral infarction, unspecified
[2018-05-07] MEDS: Sod Chloride 0.9% Inj 1,000 ML IV.CONT SCH ×3 (01:17→23:47)
[2018-05-07] MEDS: Chlorhexidine Gluconate 2% 1 Pack (2 Cloths) TOPICAL SCH (03:12)
[2018-05-07] MEDS ORDERED: Chlorhexidine Gluconate 2% 1 Pack (2 Cloths) TOPICAL PRN (04:00)
--- NOTE | 2018-05-07 11:30 | P.PNCC ---
Subjective Subjective Remarks/Hospital Course: This is a 77-year-old female with history of dyslipidemia and hypothyroidism who was initially brought to the [place] emergency department by her for confusion. Apparently symptoms started 2 days ago when she was noted to be confused and disoriented. She presented with receptive aphasia also per admit H&P. CT of the brain on admission showed cytotoxic edema involving the left temporoparietal lobe consistent with acute infarct. Because of unknown duration of onset patient was not given TPA. Patient was admitted to [place] ICU under hospitalist service. An MRI of the brain was ordered by neurology Dr. Young showed a Large left temporal stroke MRI. Because of the risk of further swelling with possible mass-effect and risk of hemorrhagic conversion, patient was transferred to [facility] for neurosurgical backup and critical care consult was requested I evaluated the patient in the [facility]. She is lying in bed protecting airway. She is oriented to person but appears to have receptive and expressive aphasia. SUBJ 05/07: Clinically remained stable overnight. Expressive and receptive aphasia persist. Repeat CT of the head for today. If stable will discuss with Dr. Young about starting chemical DVT prophylaxis with Lovenox. Objective Vital Signs / I&O: Vital Signs 05/06/18 11:45 05/06/18 12:00 05/06/18 13:45 Temperature Pulse Rate 48 L 50 L Respiratory Rate 18 13 18 Blood Pressure 124/59 L Pulse Oximetry 97 96 05/06/18 15:45 05/06/18 16:00 05/06/18 20:00 Temperature 98.5 F 98.0 F Pulse Rate 46 L 52 L 56 L Respiratory Rate 18 16 19 Blood Pressure 111/54 L 128/61 113/54 L Pulse Oximetry 96 96 93 L 05/06/18 21:45 05/07/18 00:00 05/07/18 04:00 Temperature 98.3 F Pulse Rate 53 L 53 L Respiratory Rate 18 25 H 15 Blood Pressure 122/60 142/63 H Pulse Oximetry 94 L 99 05/07/18 05:00 Temperature Pulse Rate 51 L Respiratory Rate 13 Blood Pressure 97/50 L Pulse Oximetry 98 Intake & Output 05/06/18 05/07/18 05/07/18 18:59 06:59 18:59 Intake Total 1000 / 1000 Output Total 300 / 300 550 / 550 Balance -300 / -300 450 / 450 Weight 61.1 kg Intake: IV 1000 / 1000 NS Inj 1,000 ML @ 70 mls/hr IV. 1000 / 1000 CONT .[id number] [facility] Rx#: [id number] Output: Urine 300 / 300 Urine Amount (Catheter) 550 / 550 Female External 550 / 550 Other: Date of Last Bowel Movement 05/05/18 05/05/18 05/05/18 # Bowel Movements 0 0 Result Diagrams: 05/05/18 08:58 05/06/18 04:15 Objective Remarks: GENERAL: Well-developed, well-nourished lying in bed oriented to person only SKIN: Warm and dry. HEAD: Atraumatic. Normocephalic. EYES: Pupils equal and round. No scleral icterus. No injection or drainage. ENT: No nasal bleeding or discharge. Mucous membranes pink and moist. NECK: Trachea midline. No JVD. CARDIOVASCULAR: Regular rate and rhythm. RESPIRATORY: No accessory muscle use. Clear to auscultation. GASTROINTESTINAL: Abdomen soft, non-tender, nondistended. MUSCULOSKELETAL: Extremities without clubbing, cyanosis, or edema. No obvious deformities. NEUROLOGICAL: Awake and alert, oriented to person not to place or time. No obvious cranial nerve deficits. Motor grossly intact bilaterally. + Receptive and expressive aphasia. Assessment and Plan - Assessment and Plan Plan: NEURO: Acute left temporal stroke Expressive and receptive aphasia -MRI and CT reviewed shows acute left temporal stroke -Time of onset unclear and patient did not receive TPA, Also CTA negative -Neurology Dr. Young, continue aspirin -Follow-up CT of the head today -Permissive hypertension, treat hypertension systolic more than 220, diastolic more than 120 -PT/OT/speech, OOB -Continue statins -Watch closely for swelling and mass-effect, watch closely for airway protection -TSH is normal, B12 level normal RESP: -DuoNeb every 6 hours as needed -Aggressive pulmonary toilet. EzPAP q6 -Incentive spirometry every hour CV: -Normal saline IV fluids 70 ml per hour -CTA brain and neck did not show any significant stenosis -Blood pressure target as above -Lipitor to 40 mg nightly GI: -Speech pathology consult, diet per speech recommendation, IV famotidine : -Monitor renal function closely. ID: -Monitor closely for infection HEME: -Monitor CBC, coags ENDO: -Electrolyte replacement per protocol -Sliding scale insulin if needed PROPH: -Bilateral lower extremity SCDs. Avoid chemical DVT prophylaxis due to risk of hemorrhagic conversion -If CT of the head today is negative and cleared by Dr. Young LINES: -Utilize peripheral IVs, central line if needed Level 3 At this time patient is critically ill, but stabilizing. She has a large left temporal stroke and is at risk of further swelling with mass-effect and also for hemorrhagic conversion. Monitor neuro status closely. Continue ICU care. CT head today. D/W Dr. Young
--- NOTE | 2018-05-07 15:08 | CT ---
EXAM DATE: 05/07/2018 3:01 PM EDT AGE/SEX: 77 years / Female INDICATIONS: Stroke 2 days ago CLINICAL DATA: This is the patient's subsequent encounter. Patient reports that signs and symptoms h ave been present for 2 days and indicates a pain score of 0/10. MEDICAL/SURGICAL HISTORY: Stroke. Thyroid disease Appendectomy. RADIATION DOSE: 56.37 CTDI (mGy) COMPARISON: [facility], CT HEAD W/O CONTRAST, 05/05/2018. [facility], MR HEAD W & W/O CONTRAST, 05/05/2018. . TECHNIQUE: CT of the head without contrast. Using automated exposure control and adjustment of the mA and/or kV according to patient size, radiation dose was kept as low as reasonably achievable to ob tain optimal diagnostic quality images. DICOM format image data is available electronically for revi ew and comparison. FINDINGS: Cerebrum: There is continued evolution of the acute infarct involving the left temporoparietal lobe. There is probable hemorrhagic conversion centrally within the area of infarction which measures 3.8 cm in size. No midline shift is noted. Posterior Fossa: The cerebellum and brainstem are intact. The 4th ventricle is midline. The cerebe llopontine angle is unremarkable. Extracranial: The visualized portion of the orbits is intact. Skull: The calvaria is intact. No evidence of skull fracture. CONCLUSION: 1. Continued evolution of the acute infarct involving the left temporoparietal lobe. There is probab le hemorrhagic conversion centrally within the area of infarction which measures 3.8 cm in size. No m idline shift is noted. . Electronically signed by: John Yoder MD 05/07/2018 3:07 PM EDT
--- NOTE | 2018-05-07 19:18 | P.PNNEU ---
Subjective Subjective Comments: no new c/o Active Medications: Active Medications Acetaminophen (Tylenol) 650 mg PO Q4H PRN PRN Reason: Temp > 100.4 Al Hydrox/Mg Hydrox/Simethicone (Mag-Al Plus Susp Liq) 30 ml PO Q6H PRN PRN Reason: DYSPEPSIA Al Hydroxide/Mg Hydroxide (Milk Of Magnesia Liq) 30 ml PO DAILY PRN PRN Reason: SEVERE CONSITIPATION Atorvastatin Calcium (Lipitor) 40 mg PO DAILY [facility] Last Admin: 05/07/18 12:43 Dose: 40 mg Calcium Carbonate (Tums Chew) 1,000 mg CHEW TID PRN PRN Reason: DYSPEPSIA Chlorhexidine Gluconate (Chlorhexidine 2% Cloth) 3 pack TOPICAL DAILY@0400 [facility] Stop: 05/12/18 03:59 Last Admin: 05/07/18 03:12 Dose: 3 pack Chlorhexidine Gluconate (Chlorhexidine 2% Cloth) 3 pack TOPICAL DAILY@0400 PRN PRN Reason: Extra cloth needed Stop: 05/12/18 03:59 Docusate Sodium (Colace) 100 mg PO BID PRN PRN Reason: CONSTIPATION Enalaprilat (Vasotec Inj) 1.25 mg IV.PUSH Q4H PRN PRN Reason: For SBP > 220 or DBP > 120 Sodium Chloride (Ns Inj) 1,000 mls @ 70 mls/hr IV.CONT .[id number] [facility] Last Admin: 05/07/18 01:17 Dose: 70 mls/hr Potassium Chloride (Kcl 40 Meq Premix Inj) 40 meq in 100 mls @ 25 mls/hr IV.SIG Q2H PRN PRN Reason: For Potassium 2.8 - 3.2 mEq/L Potassium Chloride (Kcl 20 Meq Premix Inj) 20 meq in 100 mls @ 50 mls/hr IV.SIG Q2H PRN PRN Reason: For Potassium 3.3 - 3.5 mEq/L Potassium Chloride (Kcl 40 Meq Premix Inj) 40 meq in 100 mls @ 25 mls/hr IV.SIG UNSCH PRN PRN Reason: For Potassium 3.3 - 3.5 mEq/L Sodium Phosphate 30 mmol/ (Sodium Chloride) 260 mls @ 42 mls/hr IV.SIG UNSCH PRN PRN Reason: For Phosphorus < 2.5 mg/dL Potassium Phosphate 30 mmol/ (Sodium Chloride) 260 mls @ 42 mls/hr IV.SIG UNSCH PRN PRN Reason: SEE LABEL COMMENTS Magnesium Sulfate 4 gm/ Sodium (Chloride) 100 mls @ 50 mls/hr IV.SIG UNSCH PRN PRN Reason: For Magnesium 0.9 - 1.1 mg/dL Potassium Chloride (Kcl 20 Meq Premix Inj) 20 meq in 100 mls @ 50 mls/hr IV.SIG Q2H PRN PRN Reason: For Potassium 2.8 - 3.2 mEq/L Magnesium Sulfate 2 gm/ Sodium (Chloride) 100 mls @ 50 mls/hr IV.SIG UNSCH PRN PRN Reason: For Magnesium 1.2 - 1.6 mg/dL Magnesium Oxide (Mag-Ox) 800 mg PO UNSCH PRN PRN Reason: For Magnesium 1.2 - 1.6 mg/dL Ondansetron HCl (Zofran Inj) 4 mg IV.PUSH Q6H PRN PRN Reason: NAUSEA Potassium Bicarb/Potassium Chloride (K-Lyte Cl Eff) 50 meq PO UNSCH PRN PRN Reason: For Potassium 3.3 - 3.5 mEq/L Potassium Phosphate (K-Phos Original) 2,000 mg PO Q4H PRN PRN Reason: Phosphorus Less Than 2.5 mg/dL Potassium Phosphate (K-Phos Original) 2,000 mg PO UNSCH PRN PRN Reason: SEE LABEL COMMENTS Senna/Docusate Sodium (Ana-Colace) 1 tab PO BID PRN PRN Reason: CONSTIPATION Sodium Chloride (Ns Flush) 2 ml IV.FLUSH BID [facility] Last Admin: 05/06/18 20:55 Dose: 2 ml Sodium Chloride (Ns Flush) 2 ml IV.FLUSH PRN PRN PRN Reason: FLUSH AFTER USING IV ACCESS Allergies/Adverse Reactions: Allergies Allergy/AdvReac Type Severity Reaction Status Date / Time No Known Allergies Allergy none Uncoded 05/05/18 09:35 Physical Exam Vital signs: Vital Signs 05/06/18 20:00 05/06/18 21:45 05/07/18 00:00 Temperature 98.0 F 98.3 F Pulse Rate 56 L 53 L 53 L Respiratory Rate 19 18 25 H Blood Pressure 113/54 L 122/60 142/63 H Pulse Oximetry 93 L 94 L 99 05/07/18 04:00 05/07/18 05:00 05/07/18 09:00 Temperature 98 F Pulse Rate 51 L 54 L Respiratory Rate 15 13 Blood Pressure 97/50 L 138/65 Pulse Oximetry 98 95 05/07/18 12:05 05/07/18 13:00 05/07/18 17:00 Temperature 98 F 98 F Pulse Rate 60 Respiratory Rate 18 Blood Pressure 132/60 159/67 H Pulse Oximetry 95 95 96 Intake & Output 05/07/18 05/07/18 05/08/18 06:59 18:59 06:59 Intake Total 1000 / 1000 240 / 240 Output Total 550 / 550 850 / 850 Balance 450 / 450 -610 / -610 Weight 61.1 kg Intake: IV 1000 / 1000 NS Inj 1,000 ML @ 70 mls/hr IV. 1000 / 1000 CONT .[id number] [facility] Rx#: [id number] Oral 240 / 240 Output: Urine 300 / 300 Urine Amount (Catheter) 550 / 550 550 / 550 Female External 550 / 550 550 / 550 Other: Date of Last Bowel Movement 05/05/18 05/05/18 # Bowel Movements 0 0 - Routine Neurological Exam alert, follow commands better. able to repeat phrases. has anomia CN intact MOTOR 5/5 BUE and BLE, no drift, normal fine motor - Urinary Catheter Management Female External Cath placed during this visit: no Objective Radiology Results: CT brain today shows hemorrhage within the left temporal parietal CVA Laboratory Results - last 24 hr 05/06/18 16:25 Urine Color Yellow Urine Clarity Cloudy H Urine pH 6.0 Ur Specific Bryan 1.013 Urine Protein Negative Urine Glucose (UA) Negative Urine Ketones Negative Urine Occult Blood Negative Urine Nitrate Positive H Urine Bilirubin Negative Urine Urobilinogen Less than 2 Ur Leukocyte Esterase Large H Urine RBC 1 Urine WBC Ur Squamous Epith Cells <1 Amorphous Sediment Rare H Urine Bacteria Many H Hyaline Casts 2 Urine Mucus Few H Micro UA Comment Culture indicated Urine Culture Comments Culture indicated Microbiology 05/06/18 16:25 Urine Culture - Preliminary Clean Catch Urine gram negative rods Review/Management - Diagnosis (1) CVA (cerebral vascular accident) Code(s): I63.9 - Cerebral infarction, unspecified Status: Acute Current Visit: Yes - Review/Management Plan: continue monitor in ICU hold asa neurosurgery consult recheck CT brain tomorrow (1) CVA (cerebral vascular accident) Qualifiers: CVA mechanism: unspecified Qualified Code(s): I63.9 - Cerebral infarction, unspecified
[2018-05-08] MEDS: Chlorhexidine Gluconate 2% 1 Pack (2 Cloths) TOPICAL SCH (05:09)
--- NOTE | 2018-05-08 08:51 | P.PNCC ---
Subjective Subjective Remarks/Hospital Course: This is a 77-year-old female with history of dyslipidemia and hypothyroidism who was initially brought to the [place] emergency department by her for confusion. Apparently symptoms started 2 days ago when she was noted to be confused and disoriented. She presented with receptive aphasia also per admit H&P. CT of the brain on admission showed cytotoxic edema involving the left temporoparietal lobe consistent with acute infarct. Because of unknown duration of onset patient was not given TPA. Patient was admitted to [place] ICU under hospitalist service. An MRI of the brain was ordered by neurology Dr. Young showed a Large left temporal stroke MRI. Because of the risk of further swelling with possible mass-effect and risk of hemorrhagic conversion, patient was transferred to [facility] for neurosurgical backup and critical care consult was requested I evaluated the patient in the [facility]. She is lying in bed protecting airway. She is oriented to person but appears to have receptive and expressive aphasia. SUBJ 05/07: Clinically remained stable overnight. Expressive and receptive aphasia persist. Repeat CT of the head for today. If stable will discuss with Dr. Young about starting chemical DVT prophylaxis with Lovenox. 05/08: Hemorrhagic conversion within a left hemispheric ischemic stroke. Expressive and receptive a fascia persist. Hemodynamics acceptable and blood pressure control acceptable. Will cover with ceftriaxone for UTI. Urinalysis on admission consistent with active UTI, unrelated to hospitalization. Objective Vital Signs / I&O: Vital Signs 05/07/18 09:00 05/07/18 12:05 05/07/18 13:00 Temperature 98 F 98 F Pulse Rate 54 L Respiratory Rate 18 Blood Pressure 138/65 132/60 Pulse Oximetry 95 95 95 05/07/18 17:00 05/07/18 19:30 05/07/18 20:00 Temperature 98 F Pulse Rate 60 Respiratory Rate Blood Pressure 159/67 H Pulse Oximetry 96 95 94 L 05/07/18 21:00 05/08/18 00:00 05/08/18 03:28 Temperature 98.4 F 98.1 F Pulse Rate 57 L 56 L Respiratory Rate 21 16 Blood Pressure 115/53 L 120/57 L Pulse Oximetry 96 97 95 05/08/18 04:00 Temperature 98.4 F Pulse Rate 47 L Respiratory Rate 18 Blood Pressure 123/58 L Pulse Oximetry 95 Intake & Output 05/07/18 05/08/18 05/08/18 18:59 06:59 18:59 Intake Total 240 / 240 1000 / 1000 Output Total 850 / 850 600 / 600 Balance -610 / -610 400 / 400 Weight 60 kg Intake: IV 1000 / 1000 NS Inj 1,000 ML @ 70 mls/hr IV. 1000 / 1000 CONT .[id number] [facility] Rx#: [id number] Oral 240 / 240 Output: Urine 300 / 300 Stool 0 / 0 Urine Amount (Catheter) 550 / 550 600 / 600 Female External 550 / 550 600 / 600 Other: Date of Last Bowel Movement 05/05/18 05/05/18 # Bowel Movements 0 Result Diagrams: 05/05/18 08:58 05/06/18 04:15 Objective Remarks: GENERAL: Elderly woman lying in bed oriented to person only SKIN: Warm and dry. HEAD: Atraumatic. Normocephalic. EYES: Pupils equal and round. No scleral icterus. No injection or drainage. ENT: No nasal bleeding or discharge. Mucous membranes pink and moist. NECK: Trachea midline. Airway widely patent, no obstructive noises. CARDIOVASCULAR: Regular rate and rhythm. Normal S1, S2. No JVD. RESPIRATORY: No accessory muscle use. Clear to auscultation. Comfortable respiratory pattern. GASTROINTESTINAL: Abdomen soft, non-tender, nondistended. No guarding. MUSCULOSKELETAL: Extremities without clubbing, cyanosis, or edema. No obvious deformities. Warm, well-perfused. NEUROLOGICAL: Awake and alert, oriented to person. No obvious cranial nerve deficits. Motor function grossly intact bilaterally. + Receptive and expressive aphasia. Assessment and Plan - Assessment and Plan Plan: NEURO: Acute left temporal stroke Expressive and receptive aphasia -MRI and CT reviewed shows acute left temporal stroke -Time of onset unclear and patient did not receive TPA, Also CTA negative -Neurology Dr. Young, continue aspirin -Follow-up CT of the head today -Permissive hypertension, treat hypertension systolic more than 220, diastolic more than 120 -PT/OT/speech, OOB -Continue statins -Watch closely for swelling and mass-effect, watch closely for airway protection -TSH is normal, B12 level normal RESP: -DuoNeb every 6 hours as needed -Aggressive pulmonary toilet. EzPAP q6 -Incentive spirometry every hour CV: -Normal saline IV fluids 70 ml per hour -CTA brain and neck did not show any significant stenosis -Blood pressure target as above -Lipitor to 40 mg nightly -Discontinue fluids when able to take p.o. GI: -Speech pathology consult, diet per speech recommendation, IV famotidine : -Monitor renal function closely. -No Serrano catheter necessary. ID: -Monitor closely for infection -Urinary tract infection present on admission her urinalysis. Now growing gram- negative rods greater than 100,000. -Start ceftriaxone 1 g daily. No indwelling catheters. HEME: -Monitor CBC, coags ENDO: -Electrolyte replacement per protocol -Sliding scale insulin if needed PROPH: -Bilateral lower extremity SCDs. Avoid chemical DVT prophylaxis due to hemorrhagic conversion of CVA. LINES: -Utilize peripheral IVs, central line if needed Overall impression: At this time patient is critically ill, but stabilizing. She has a large left temporal stroke with hemorrhagic conversion and is at risk of further swelling with mass-effect. Monitor neuro status closely. Continue ICU care. Presently protects her airway adequately.
--- NOTE | 2018-05-08 08:54 | P.CONNS ---
History of Present Illness Reason for Consult: Left MCA stroke Primary Care Provider: Serge Black Chief Complaint: Confusion History of Present Illness: Ms. Jackson is a 77 y/o female who presented 3 days ago with signs and symptoms of a left MCA stroke. She has been admitted to the ICU since for monitoring. Repeat head CT yesterday demonstrated questionable hyperdensity within the left MCA stroke territory concerning for intracerebral hemorrhage. She has remained neurologically stable. The ICU team has held her aspirin therapy. Review of Systems All other systems reviewed negative except as stated in HPI [facility] - History History Provided By: Significant Other - Medical History Medical History: Medical History (Last Reviewed 05/07/18 @ 09:42 by Oly Werner) Cataracts, bilateral Thyroid disease - Surgical History Surgical History: Surgical History (Last Reviewed 05/07/18 @ 09:42 by Oly Werner) History of appendectomy Previous back surgery - Family History Family History: Family History (Last Reviewed 05/07/18 @ 09:42 by Oly Werner) Other No history of stroke - Tobacco History Second Hand Smoke Exposure: No Smoking Status: Never smoker - Alcohol History How Often Do You Have a Drink Containing Alcohol: Never - Substance Use History Substance History: No History of Abuse - Travel History Recent Travel in the [facility] Within the Last 8 Weeks: No - Immunization History Tetanus Immunization: >5 Years Hx Influenza Vaccine This Season: Yes Medications and Allergies Active Medications: Active Medications Acetaminophen (Tylenol) 650 mg PO Q4H PRN PRN Reason: Temp > 100.4 Al Hydrox/Mg Hydrox/Simethicone (Mag-Al Plus Susp Liq) 30 ml PO Q6H PRN PRN Reason: DYSPEPSIA Al Hydroxide/Mg Hydroxide (Milk Of Magnesia Liq) 30 ml PO DAILY PRN PRN Reason: SEVERE CONSITIPATION Atorvastatin Calcium (Lipitor) 40 mg PO DAILY [facility] Last Admin: 05/07/18 12:43 Dose: 40 mg Calcium Carbonate (Tums Chew) 1,000 mg CHEW TID PRN PRN Reason: DYSPEPSIA Chlorhexidine Gluconate (Chlorhexidine 2% Cloth) 3 pack TOPICAL DAILY@0400 [facility] Stop: 05/12/18 03:59 Last Admin: 05/08/18 05:09 Dose: 3 pack Chlorhexidine Gluconate (Chlorhexidine 2% Cloth) 3 pack TOPICAL DAILY@0400 PRN PRN Reason: Extra cloth needed Stop: 05/12/18 03:59 Docusate Sodium (Colace) 100 mg PO BID PRN PRN Reason: CONSTIPATION Enalaprilat (Vasotec Inj) 1.25 mg IV.PUSH Q4H PRN PRN Reason: For SBP > 220 or DBP > 120 Sodium Chloride (Ns Inj) 1,000 mls @ 70 mls/hr IV.CONT .[id number] [facility] Last Admin: 05/07/18 23:47 Dose: Not Given Potassium Chloride (Kcl 40 Meq Premix Inj) 40 meq in 100 mls @ 25 mls/hr IV.SIG Q2H PRN PRN Reason: For Potassium 2.8 - 3.2 mEq/L Potassium Chloride (Kcl 20 Meq Premix Inj) 20 meq in 100 mls @ 50 mls/hr IV.SIG Q2H PRN PRN Reason: For Potassium 3.3 - 3.5 mEq/L Potassium Chloride (Kcl 40 Meq Premix Inj) 40 meq in 100 mls @ 25 mls/hr IV.SIG UNSCH PRN PRN Reason: For Potassium 3.3 - 3.5 mEq/L Sodium Phosphate 30 mmol/ (Sodium Chloride) 260 mls @ 42 mls/hr IV.SIG UNSCH PRN PRN Reason: For Phosphorus < 2.5 mg/dL Potassium Phosphate 30 mmol/ (Sodium Chloride) 260 mls @ 42 mls/hr IV.SIG UNSCH PRN PRN Reason: SEE LABEL COMMENTS Magnesium Sulfate 4 gm/ Sodium (Chloride) 100 mls @ 50 mls/hr IV.SIG UNSCH PRN PRN Reason: For Magnesium 0.9 - 1.1 mg/dL Potassium Chloride (Kcl 20 Meq Premix Inj) 20 meq in 100 mls @ 50 mls/hr IV.SIG Q2H PRN PRN Reason: For Potassium 2.8 - 3.2 mEq/L Magnesium Sulfate 2 gm/ Sodium (Chloride) 100 mls @ 50 mls/hr IV.SIG UNSCH PRN PRN Reason: For Magnesium 1.2 - 1.6 mg/dL Ceftriaxone Sodium 1,000 mg/ (Sodium Chloride) 100 mls @ 200 mls/hr IV.SIG Q24H [facility] Magnesium Oxide (Mag-Ox) 800 mg PO UNSCH PRN PRN Reason: For Magnesium 1.2 - 1.6 mg/dL Ondansetron HCl (Zofran Inj) 4 mg IV.PUSH Q6H PRN PRN Reason: NAUSEA Potassium Bicarb/Potassium Chloride (K-Lyte Cl Eff) 50 meq PO UNSCH PRN PRN Reason: For Potassium 3.3 - 3.5 mEq/L Potassium Phosphate (K-Phos Original) 2,000 mg PO Q4H PRN PRN Reason: Phosphorus Less Than 2.5 mg/dL Potassium Phosphate (K-Phos Original) 2,000 mg PO UNSCH PRN PRN Reason: SEE LABEL COMMENTS Senna/Docusate Sodium (Ana-Colace) 1 tab PO BID PRN PRN Reason: CONSTIPATION Sodium Chloride (Ns Flush) 2 ml IV.FLUSH BID [facility] Last Admin: 05/07/18 23:47 Dose: Not Given Sodium Chloride (Ns Flush) 2 ml IV.FLUSH PRN PRN PRN Reason: FLUSH AFTER USING IV ACCESS Allergies Allergy/AdvReac Type Severity Reaction Status Date / Time No Known Allergies Allergy none Uncoded 05/05/18 09:35 Home Medications Medication Instructions Recorded Confirmed Type atorvastatin 20 mg PO DAILY 05/05/18 05/05/18 History levothyroxine 88 mcg PO DAILY 05/08/18 05/08/18 History Exam Vital signs: Vital Signs 05/07/18 09:00 05/07/18 12:05 05/07/18 13:00 Temperature 98 F 98 F Pulse Rate 54 L Respiratory Rate 18 Blood Pressure 138/65 132/60 Pulse Oximetry 95 95 95 05/07/18 17:00 05/07/18 19:30 05/07/18 20:00 Temperature 98 F Pulse Rate 60 Respiratory Rate Blood Pressure 159/67 H Pulse Oximetry 96 95 94 L 05/07/18 21:00 05/08/18 00:00 05/08/18 03:28 Temperature 98.4 F 98.1 F Pulse Rate 57 L 56 L Respiratory Rate 21 16 Blood Pressure 115/53 L 120/57 L Pulse Oximetry 96 97 95 05/08/18 04:00 Temperature 98.4 F Pulse Rate 47 L Respiratory Rate 18 Blood Pressure 123/58 L Pulse Oximetry 95 Intake & Output 05/07/18 05/08/18 05/08/18 18:59 06:59 18:59 Intake Total 240 / 240 1000 / 1000 Output Total 850 / 850 600 / 600 Balance -610 / -610 400 / 400 Weight 60 kg Intake: IV 1000 / 1000 NS Inj 1,000 ML @ 70 mls/hr IV. 1000 / 1000 CONT .[id number] [facility] Rx#: [id number] Oral 240 / 240 Output: Urine 300 / 300 Stool 0 / 0 Urine Amount (Catheter) 550 / 550 600 / 600 Female External 550 / 550 600 / 600 Other: Date of Last Bowel Movement 05/05/18 05/05/18 # Bowel Movements 0 Narrative: Opens eyes spontaneously EOMI PERRL Alert and oriented to self, not place, month (not year) Names 0/3 (pencil for pen, hair for hairbrush, clock for wristwatch) Mimics reliably, intermittently follows commands Expressive aphasia 5/5 strength No pronator drift Results - Laboratory Findings CBC and BMP: 05/05/18 08:58 05/06/18 04:15 Abnormal lab findings: Abnormal Labs 05/05/18 05/05/18 05/05/18 08:58 08:58 21:15 Neut % (Auto) 78.8 H Sodium 133 L Estimated GFR 65 L POC Glucose 118 H Random Glucose 126 H Calcium Troponin I Less than 0.02 L Urine Clarity Urine Nitrate Ur Leukocyte Esterase Amorphous Sediment Urine Bacteria Urine Mucus 05/06/18 05/06/18 04:15 16:25 Neut % (Auto) Sodium Estimated GFR 87 L POC Glucose Random Glucose Calcium 8.2 L Troponin I Urine Clarity Cloudy H Urine Nitrate Positive H Ur Leukocyte Esterase Large H Amorphous Sediment Rare H Urine Bacteria Many H Urine Mucus Few H - Diagnostic Findings Additional findings: CT head demonstrates questionable hyperdensity within the left MCA stroke territory concerning for intracerebral hemorrhage. Assessment and Plan - Plan 77 y/o female s/p left MCA ischemic stroke with questionable, small hemorrhagic conversion. Neurologically stable. No neurosurgical intervention indicated. Agree with holding aspirin given risk/benefit of stroke prevention versus hemorrhage. Continue neuro checks.
--- NOTE | 2018-05-08 11:54 | P.PNNEU ---
Subjective Subjective Comments: no cp, no dyspnea, no parker, no focal weakness, no vision loss Active Medications: Active Medications Acetaminophen (Tylenol) 650 mg PO Q4H PRN PRN Reason: Temp > 100.4 Al Hydrox/Mg Hydrox/Simethicone (Mag-Al Plus Susp Liq) 30 ml PO Q6H PRN PRN Reason: DYSPEPSIA Al Hydroxide/Mg Hydroxide (Milk Of Magnesia Liq) 30 ml PO DAILY PRN PRN Reason: SEVERE CONSITIPATION Atorvastatin Calcium (Lipitor) 40 mg PO DAILY [facility] Last Admin: 05/08/18 09:44 Dose: 40 mg Calcium Carbonate (Tums Chew) 1,000 mg CHEW TID PRN PRN Reason: DYSPEPSIA Chlorhexidine Gluconate (Chlorhexidine 2% Cloth) 3 pack TOPICAL DAILY@0400 [facility] Stop: 05/12/18 03:59 Last Admin: 05/08/18 05:09 Dose: 3 pack Chlorhexidine Gluconate (Chlorhexidine 2% Cloth) 3 pack TOPICAL DAILY@0400 PRN PRN Reason: Extra cloth needed Stop: 05/12/18 03:59 Docusate Sodium (Colace) 100 mg PO BID PRN PRN Reason: CONSTIPATION Enalaprilat (Vasotec Inj) 1.25 mg IV.PUSH Q4H PRN PRN Reason: For SBP > 220 or DBP > 120 Sodium Chloride (Ns Inj) 1,000 mls @ 70 mls/hr IV.CONT .[id number] [facility] Last Admin: 05/07/18 23:47 Dose: Not Given Potassium Chloride (Kcl 40 Meq Premix Inj) 40 meq in 100 mls @ 25 mls/hr IV.SIG Q2H PRN PRN Reason: For Potassium 2.8 - 3.2 mEq/L Potassium Chloride (Kcl 20 Meq Premix Inj) 20 meq in 100 mls @ 50 mls/hr IV.SIG Q2H PRN PRN Reason: For Potassium 3.3 - 3.5 mEq/L Potassium Chloride (Kcl 40 Meq Premix Inj) 40 meq in 100 mls @ 25 mls/hr IV.SIG UNSCH PRN PRN Reason: For Potassium 3.3 - 3.5 mEq/L Sodium Phosphate 30 mmol/ (Sodium Chloride) 260 mls @ 42 mls/hr IV.SIG UNSCH PRN PRN Reason: For Phosphorus < 2.5 mg/dL Potassium Phosphate 30 mmol/ (Sodium Chloride) 260 mls @ 42 mls/hr IV.SIG UNSCH PRN PRN Reason: SEE LABEL COMMENTS Magnesium Sulfate 4 gm/ Sodium (Chloride) 100 mls @ 50 mls/hr IV.SIG UNSCH PRN PRN Reason: For Magnesium 0.9 - 1.1 mg/dL Potassium Chloride (Kcl 20 Meq Premix Inj) 20 meq in 100 mls @ 50 mls/hr IV.SIG Q2H PRN PRN Reason: For Potassium 2.8 - 3.2 mEq/L Magnesium Sulfate 2 gm/ Sodium (Chloride) 100 mls @ 50 mls/hr IV.SIG UNSCH PRN PRN Reason: For Magnesium 1.2 - 1.6 mg/dL Ceftriaxone Sodium 1,000 mg/ (Sodium Chloride) 100 mls @ 200 mls/hr IV.SIG Q24H [facility] Last Admin: 05/08/18 09:44 Dose: 200 mls/hr Magnesium Oxide (Mag-Ox) 800 mg PO UNSCH PRN PRN Reason: For Magnesium 1.2 - 1.6 mg/dL Ondansetron HCl (Zofran Inj) 4 mg IV.PUSH Q6H PRN PRN Reason: NAUSEA Potassium Bicarb/Potassium Chloride (K-Lyte Cl Eff) 50 meq PO UNSCH PRN PRN Reason: For Potassium 3.3 - 3.5 mEq/L Potassium Phosphate (K-Phos Original) 2,000 mg PO Q4H PRN PRN Reason: Phosphorus Less Than 2.5 mg/dL Potassium Phosphate (K-Phos Original) 2,000 mg PO UNSCH PRN PRN Reason: SEE LABEL COMMENTS Senna/Docusate Sodium (Ana-Colace) 1 tab PO BID PRN PRN Reason: CONSTIPATION Sodium Chloride (Ns Flush) 2 ml IV.FLUSH BID [facility] Last Admin: 05/08/18 09:44 Dose: 2 ml Sodium Chloride (Ns Flush) 2 ml IV.FLUSH PRN PRN PRN Reason: FLUSH AFTER USING IV ACCESS Allergies/Adverse Reactions: Allergies Allergy/AdvReac Type Severity Reaction Status Date / Time No Known Allergies Allergy none Uncoded 05/05/18 09:35 Review of Systems All other systems reviewed negative except as stated in HPI Physical Exam Vital signs: Vital Signs 05/07/18 12:05 09/21/18 13:00 05/07/18 17:00 Temperature 98 F 98 F Pulse Rate 60 Respiratory Rate 18 Blood Pressure 132/60 159/67 H Pulse Oximetry 95 95 96 05/07/18 19:30 05/07/18 20:00 05/07/18 21:00 Temperature 98.4 F Pulse Rate 57 L Respiratory Rate 21 Blood Pressure 115/53 L Pulse Oximetry 95 94 L 96 05/08/18 00:00 05/08/18 03:28 05/08/18 04:00 Temperature 98.1 F 98.4 F Pulse Rate 56 L 47 L Respiratory Rate 16 18 Blood Pressure 120/57 L 123/58 L Pulse Oximetry 97 95 95 05/08/18 09:00 Temperature Pulse Rate Respiratory Rate Blood Pressure Pulse Oximetry 96 Intake & Output 05/07/18 05/08/18 05/08/18 18:59 06:59 18:59 Intake Total 240 / 240 1000 / 1000 Output Total 850 / 850 600 / 600 Balance -610 / -610 400 / 400 Weight 60 kg Intake: IV 1000 / 1000 NS Inj 1,000 ML @ 70 mls/hr IV. 1000 / 1000 CONT .[id number] [facility] Rx#: [id number] Oral 240 / 240 Output: Urine 300 / 300 Stool 0 / 0 Urine Amount (Catheter) 550 / 550 600 / 600 Female External 550 / 550 600 / 600 Other: Date of Last Bowel Movement 05/05/18 05/05/18 # Bowel Movements 0 Narrative: GENERAL: In no acute distress SKIN: Warm and dry. HEAD: Atraumatic. Normocephalic. EYES: Pupils equal and round. No scleral icterus. No injection or drainage. ENT: No nasal bleeding or discharge. Mucous membranes pink and moist. NECK: Trachea midline. No JVD. CARDIOVASCULAR: Regular rate and rhythm. RESPIRATORY: No accessory muscle use. Clear to auscultation. Breath sounds equal bilaterally. GASTROINTESTINAL: Abdomen soft, non-tender, nondistended. MUSCULOSKELETAL: Extremities without clubbing, cyanosis, or edema. No obvious deformities. NEUROLOGICAL: Awake and alert, oriented to self new she is in hospital unable to give the exact date. Pleasant, able name simple objects dysnomia and others. Difficulty with more complex motor requests, visual agllagher grossly full no facial asymmetry OU surgical extraction cataract changes able raise all 4 extremity gravity for greater than 5 seconds - Constitutional no acute distress - Routine HEENT Exam Head: Present: normocephalic Eye: Present: EOMI - Urinary Catheter Management Female External Cath placed during this visit: no Objective Laboratory Results - last 24 hr 05/06/18 16:25 Urine Color Yellow Urine Clarity Cloudy H Urine pH 6.0 Ur Specific [place] 1.013 Urine Protein Negative Urine Glucose (UA) Negative Urine Ketones Negative Urine Occult Blood Negative Urine Nitrate Positive H Urine Bilirubin Negative Urine Urobilinogen Less than 2 Ur Leukocyte Esterase Large H Urine RBC 1 Urine WBC Ur Squamous Epith Cells <1 Amorphous Sediment Rare H Urine Bacteria Many H Hyaline Casts 2 Urine Mucus Few H Micro UA Comment Culture indicated Urine Culture Comments Culture indicated Microbiology 05/06/18 16:25 Urine Culture - Final Clean Catch Urine Klebsiella pneumoniae Review/Management - Diagnosis (1) CVA (cerebral vascular accident) Code(s): I63.9 - Cerebral infarction, unspecified Status: Acute Current Visit: Yes (2) Acute ischemic left MCA stroke Code(s): I63.512 - Cerebral infarction due to unspecified occlusion or stenosis of left middle cerebral artery Status: Acute Current Visit: Yes - Review/Management Plan: CT brain scan reviewed hemorrhagic transformation of left temporal stroke. No significant edema no shift CT brain carotids negative. Lipid within normal limits echo showing good ejection fraction Question etiology of her stroke Cardiac arrhythmia versus hypercoagulable state Recommendations Cardiology evaluation for DANTE/loop recorder Hematology evaluation to exclude hypercoagulable state Patient doing very well neurologically. Blood pressure is controlled Therapy Appreciate critical care management (1) CVA (cerebral vascular accident) Qualifiers: CVA mechanism: unspecified Qualified Code(s): I63.9 - Cerebral infarction, unspecified
--- NOTE | 2018-05-08 15:27 | CT ---
EXAM DATE: 05/08/2018 3:13 PM EDT AGE/SEX: 77 years / Female INDICATIONS: Abnormal prior imaging. Evaluate status of intracerebral hemorrhage. CLINICAL DATA: This is the patient's initial encounter. Patient reports that signs and symptoms have been present for 1 day and indicates a pain score of 0/10. MEDICAL/SURGICAL HISTORY: Stroke. Appendectomy. RADIATION DOSE: 50.02 CTDI (mGy) COMPARISON: C, CT HEAD W/O CONTRAST, 05/07/2018. [facility], MR HEAD W & W/O CONTRAST, 05/05/2018. . TECHNIQUE: CT of the head without contrast. Using automated exposure control and adjustment of the mA and/or kV according to patient size, radiation dose was kept as low as reasonably achievable to ob tain optimal diagnostic quality images. DICOM format image data is available electronically for revi ew and comparison. FINDINGS: Remote left cerebellar lacunar infarcts. There is hypodensity identified in the left temporal region again seen and not significantly changed. There are no fractures. There is no hyperdense hemorrhage s een. CONCLUSION: 1. Left temporal occipital infarct again seen with edema. 2. No hemorrhage. . Electronically signed by: Duane Ayala MD 05/08/2018 3:25 PM EDT
[2018-05-08] MEDS: Sod Chloride 0.9% Inj 1,000 ML IV.CONT SCH (17:05)
--- NOTE | 2018-05-08 23:09 | MB ---
cc: MonacoAdalberto Sathish TANNER DATE: 05/08/2018 REASON FOR CONSULTATION: CVA, consideration of DANTE and loop recorder placement. HISTORY OF PRESENT ILLNESS: Michelle Jackson is a pleasant 77-year-old female who was originally brought in due to confusion. She is able to answer some questions and help out, but I did speak to her at the bedside for further information after my initial visit. Apparently, confusion and disorientation started about 2 days prior and the symptoms persisted and so she was brought into the emergency room. She does have some receptive aphasia. She underwent initial workup and was found to have left temporal stroke. She was noted to have expressive and receptive aphasia and so an MRI was ordered showing a large left temporal stroke. A repeat CT of the head was done to determine if she was a candidate for DVT prophylaxis and during that she was found to have probable hemorrhagic conversion centrally within the area of infarction. She was evaluated by Neurosurgery and it was felt no intervention indicated at this time. Neurology has asked that I see her for consideration of DANTE and loop recorder placement as she has minimal risk factors for CVA. In seeing her, she is currently hemodynamically stable with no complaints. She does still have some expressive and receptive aphasia. PAST MEDICAL HISTORY: 1. Bilateral cataracts. 2. Thyroid disease. 3. Hyperlipidemia. PAST SURGICAL HISTORY: 1. Appendectomy. 2. Previous back surgery. ALLERGIES: NO KNOWN DRUG ALLERGIES. MEDICATIONS: 1. Lipitor 20 mg daily. 2. Synthroid 88 mcg daily. FAMILY HISTORY: Denies sudden cardiac within the family. SOCIAL HISTORY: Denies tobacco, alcohol or drug abuse. REVIEW OF SYSTEMS: Fourteen systems were reviewed including osteopathic. Pertinent positives and negatives above, otherwise negative. PHYSICAL EXAMINATION: VITAL SIGNS: Temperature 97.6, heart rate 54, blood pressure 123/57, respirations 20, pulse oximetry 95% on room air. GENERAL: The patient appears well, in no acute distress, alert and awake. HEENT: Extraocular muscles intact. Mucous membranes moist. NECK: Supple. No JVD at 45 degrees. No carotid bruits heard bilaterally. Carotid upstroke is brisk in nature. HEART: The heart is bradycardic, but regular. Positive first and second heart sounds with no noted murmurs, gallops or rubs. LUNGS: Clear to auscultation bilaterally. No wheezes, rales or rhonchi. ABDOMEN: Soft, nontender, nondistended. No organomegaly noted. EXTREMITIES: Show no clubbing, cyanosis or edema. Femoral and distal pulses intact bilaterally. NEUROLOGIC: The patient still has some expressive and receptive aphasia. She is able to move all 4 extremities. SKIN: Warm, dry and intact. OSTEOPATHIC: No kyphoscoliosis, lordosis or paraspinal tender points. LABORATORY DATA: Hemoglobin 14.6, hematocrit 42.9, platelets 274. Potassium 3.5, BUN 11, creatinine 0.66. Troponin less than 0.02. Electrocardiogram (05/05/2018 at 0837): Sinus rhythm, occasional PAC, possible left atrial enlargement, incomplete right bundle branch block. IMPRESSION: 1. Large left temporal acute cerebrovascular accident with hemorrhagic conversion. 2. Hyperlipidemia. 3. Expressive and receptive aphasia. RECOMMENDATIONS: 1. Mrs. Jackson presented with a large left temporal cerebrovascular accident which has since had hemorrhagic conversion. 2. All antiplatelets and anticoagulants have been held per Neurology and Neurosurgery. 3. As far as her stroke, she has very little risk factors and so unsure of possible cause. Ultimately, I agree with Neurology that she should undergo a DANTE to evaluate for possible PFO and for possible cardioembolic causes. She should also undergo a loop recorder placement to rule out atrial fibrillation as a possible cause. 4. If atrial fibrillation is determined at some point down the line, then discussions will need to be had with Neurology and Neurosurgery on consideration of anticoagulation due to her hemorrhagic conversion from her ischemic stroke. 5. This was discussed with the patient and her and they agree with having the procedure early this week depending on her hospital course. 6. Further recommendations will be made based on the hospital course. Thank you for allowing me to see Michelle Jackson. If there are any questions, please do not hesitate to call. Adalberto Monaco, DO VGP/ns , 05:41 PM , 05:53 PM
[2018-05-09] MEDS: Sod Chloride 0.9% Inj 1,000 ML IV.CONT SCH (04:26)
[2018-05-09] MEDS: Chlorhexidine Gluconate 2% 1 Pack (2 Cloths) TOPICAL SCH (04:27)
--- NOTE | 2018-05-09 04:45 | MB ---
cc: Kaylee Luna MD DATE: 05/08/2018 REASON FOR CONSULTATION: Consult requested by neurologist for evaluation of possible hypercoagulable state in a patient who has a stroke. HISTORY OF PRESENT ILLNESS: This is a 77-year-old, very pleasant white female. She is unable to give much history due to the recent stroke and she states that she is having difficulty remembering the events. History is obtained through the review of the records. The patient has a history of hypothyroidism and hyperlipidemia. She was brought into the emergency room by her after she had change in mental status. The CT scan of the brain showed left temporoparietal lobe edema consistent with acute infarct. The patient is admitted to the hospital. Neurology has been consulted. Dr. Martinez saw the patient. She has hemorrhagic transformation of the left temporal lobe infarct. The CTA carotids is negative. He is requesting a hematology consult for possible hypercoagulable state. According to the records, the patient never had any history of thromboembolic disease. REVIEW OF SYSTEMS: Not possible. PAST MEDICAL HISTORY: Hypothyroidism, hypercholesterolemia. PAST SURGICAL HISTORY: Cataracts, appendectomy and back surgery. ALLERGIES: NONE. MEDICATIONS: 1. Tylenol. 2. Milk of magnesia. 3. Aspirin. 4. Tums. 5. Vasotec. 6. Zofran. FAMILY HISTORY: Unable to obtain. SOCIAL HISTORY: The patient does not smoke cigarettes, does not drink alcohol. PHYSICAL EXAMINATION: GENERAL: Well-developed, well-nourished white female, in no apparent distress. VITAL SIGNS: Temperature 98.1, heart rate is 58, blood pressure is 123/60. HEAD, EYES, EARS, NOSE, AND THROAT: Pupils equal, round, reactive to light and accommodation, extraocular movements intact. Anicteric. No oral lesions noted. No thrush noted. NECK: Supple. No JVD. No masses noted. LUNGS: Clear. No wheezing, rhonchi, or rales. HEART: Regular rate and rhythm. No murmur heard. ABDOMEN: Soft and nontender. No hepatosplenomegaly. No abnormal bowel sounds. No guarding or rigidity noted. EXTREMITIES: No pedal edema. No cyanosis, no clubbing. SKIN: No bruises or petechiae noted. BREASTS: No masses noted. LYMPH NODES: No cervical, supraclavicular, or axillary lymphadenopathy noted. BACK: There is no spinal tenderness noted. Pupillary reflexes were normal exam. NEUROLOGIC: The patient is awake, alert, oriented, but she has expressive aphasia at times and problems with short-term and long-term memory. ASSESSMENT: Acute thrombotic cerebrovascular accident with hemorrhagic transformation, currently on aspirin. PLAN: I have reviewed her available records. I will order the hypercoagulable panel. The result will take at least 2 weeks. If the patient is discharged to home prior to that, then she needs to make an appointment in our office to discuss the results of the hypercoagulable panel. The patient's was not present. I have discussed the case with the patient's nurse. Thank you for asking my opinion. MD BROOK Mullins/kendall , 12:19 AM , 12:27 AM TERESA
--- NOTE | 2018-05-09 08:11 | P.PNCC ---
Subjective Subjective Remarks/Hospital Course: This is a 77-year-old female with history of dyslipidemia and hypothyroidism who was initially brought to the [facility] emergency department by her for confusion. Apparently symptoms started 2 days ago when she was noted to be confused and disoriented. She presented with receptive aphasia also per admit H&P. CT of the brain on admission showed cytotoxic edema involving the left temporoparietal lobe consistent with acute infarct. Because of unknown duration of onset patient was not given TPA. Patient was admitted to [facility] ICU under hospitalist service. An MRI of the brain was ordered by neurology Dr. Young showed a Large left temporal stroke MRI. Because of the risk of further swelling with possible mass-effect and risk of hemorrhagic conversion, patient was transferred to [facility] for neurosurgical backup and critical care consult was requested I evaluated the patient in the [facility]. She is lying in bed protecting airway. She is oriented to person but appears to have receptive and expressive aphasia. SUBJ 05/07: Clinically remained stable overnight. Expressive and receptive aphasia persist. Repeat CT of the head for today. If stable will discuss with Dr. Young about starting chemical DVT prophylaxis with Lovenox. 05/08: Hemorrhagic conversion within a left hemispheric ischemic stroke. Expressive and receptive a fascia persist. Hemodynamics acceptable and blood pressure control acceptable. Will cover with ceftriaxone for UTI. Urinalysis on admission consistent with active UTI, unrelated to hospitalization. 05/09: Remains afebrile and normotensive. Speech clear today. Klebsiella in urine is sensitive to ceftriaxone, continue for 5 days. Objective Vital Signs / I&O: Vital Signs 05/08/18 09:00 05/08/18 10:00 05/08/18 12:00 Temperature 97.6 F Pulse Rate 54 L 54 L Respiratory Rate 20 Blood Pressure 123/57 L Pulse Oximetry 96 95 05/08/18 14:00 05/08/18 16:00 05/08/18 18:00 Temperature 98.1 F Pulse Rate 55 L 50 L 57 L Respiratory Rate 16 Blood Pressure 139/63 Pulse Oximetry 94 L 05/08/18 20:00 05/08/18 20:41 05/08/18 22:00 Temperature 98.1 F Pulse Rate 58 L 60 Respiratory Rate 21 Blood Pressure 123/60 Pulse Oximetry 94 L 93 L 05/09/18 00:00 05/09/18 02:00 05/09/18 04:00 Temperature 97.6 F Pulse Rate 46 L 54 L 44 L Respiratory Rate 15 17 Blood Pressure 125/59 L 113/54 L Pulse Oximetry 94 L 95 05/09/18 06:00 Temperature Pulse Rate 46 L Respiratory Rate Blood Pressure Pulse Oximetry Intake & Output 05/08/18 05/09/18 05/09/18 18:59 06:59 18:59 Intake Total 580 / 580 Output Total 400 / 400 Balance 180 / 180 Weight 58.7 kg Intake: IV 100 / 100 Rocephin Inj 1,000 MG In NS Inj 100 / 100 100 ML @ 200 mls/hr IV.SIG Q24H [facility] Rx#:[id number] Oral 480 / 480 Output: Urine 400 / 400 Other: # Voids 2 2 Date of Last Bowel Movement 05/08/18 05/08/18 # Bowel Movements 1 Result Diagrams: 05/05/18 08:58 05/06/18 04:15 Objective Remarks: GENERAL: Elderly woman lying in bed oriented to person only SKIN: Warm and dry. HEAD: Atraumatic. Normocephalic. EYES: Pupils equal and round. No scleral icterus. No injection or drainage. ENT: No nasal bleeding or discharge. Mucous membranes pink and moist. NECK: Trachea midline. Airway widely patent, no obstructive noises. CARDIOVASCULAR: Regular rate and rhythm. Normal S1, S2. No JVD. RESPIRATORY: No accessory muscle use. Clear to auscultation. Comfortable respiratory pattern. GASTROINTESTINAL: Abdomen soft, non-tender, nondistended. No guarding. MUSCULOSKELETAL: Extremities without clubbing, cyanosis, or edema. No obvious deformities. Warm, well-perfused. NEUROLOGICAL: Awake and alert, oriented to person. No obvious cranial nerve deficits. Motor function grossly intact bilaterally though right hand grasp appears modestly weaker than left. + Receptive aphasia, production of speech much faster today. Assessment and Plan - Problem List (1) Acute ischemic left MCA stroke Code(s): I63.512 - Cerebral infarction due to unspecified occlusion or stenosis of left middle cerebral artery Status: Acute (2) Cerebral parenchymal hemorrhage Code(s): I61.9 - Nontraumatic intracerebral hemorrhage, unspecified Status: Acute (3) CVA (cerebral vascular accident) Code(s): I63.9 - Cerebral infarction, unspecified Status: Acute - Assessment and Plan Plan: NEURO: Acute left temporal stroke Expressive and receptive aphasia -MRI and CT reviewed shows acute left temporal stroke -Time of onset unclear and patient did not receive TPA, Also CTA negative -Neurology Dr. Young, continue aspirin -Follow-up CT of the head today -Permissive hypertension, treat hypertension systolic more than 220, diastolic more than 120 -PT/OT/speech, OOB -Continue statins -Watch closely for swelling and mass-effect, watch closely for airway protection -TSH is normal, B12 level normal RESP: -DuoNeb every 6 hours as needed -Aggressive pulmonary toilet. EzPAP q6 -Incentive spirometry every hour CV: -Normal saline IV fluids 70 ml per hour -CTA brain and neck did not show any significant stenosis -Blood pressure target as above -Lipitor to 40 mg nightly -Discontinue fluids when able to take p.o. GI: -Speech pathology consult, diet per speech recommendation, IV famotidine : -Monitor renal function closely. -No Serrano catheter necessary. ID: -Monitor closely for infection -Urinary tract infection present on admission her urinalysis. Now growing gram- negative rods greater than 100,000 (Klebsiella) -Start ceftriaxone 1 g daily 05/08. No indwelling catheters. HEME: -Monitor CBC, coags ENDO: -Electrolyte replacement per protocol -Sliding scale insulin if needed PROPH: -Bilateral lower extremity SCDs. Avoid chemical DVT prophylaxis due to hemorrhagic conversion of CVA. LINES: -Utilize peripheral IVs, central line if needed Overall impression: She has a large left temporal stroke with hemorrhagic conversion and is at risk of further swelling with mass-effect. Monitor neuro status closely. Presently protects her airway adequately and handle secretions without difficulty.. (2) Cerebral parenchymal hemorrhage Qualifiers: Intracerebral hemorrhage etiology: nontraumatic Cerebral hemorrhage location : cerebral hemisphere, unspecified portion Laterality: left Qualified Code(s) : I61.2 - Nontraumatic intracerebral hemorrhage in hemisphere, unspecified (3) CVA (cerebral vascular accident) Qualifiers: CVA mechanism: unspecified Qualified Code(s): I63.9 - Cerebral infarction, unspecified
[2018-05-09 11:02] LABS: Calcium 9.2 mg/dL (8.5-10.1); Carbon Dioxide 25.1 meq/L (21.0-32.0); Potassium 3.8 meq/L (3.5-5.1)
--- NOTE | 2018-05-09 13:30 | P.PNNEU ---
Subjective Subjective Comments: no cp, no dyspnea, no parker, no focal weakness, no vision loss Active Medications: Active Medications Acetaminophen (Tylenol) 650 mg PO Q4H PRN PRN Reason: Temp > 100.4 Al Hydrox/Mg Hydrox/Simethicone (Mag-Al Plus Susp Liq) 30 ml PO Q6H PRN PRN Reason: DYSPEPSIA Al Hydroxide/Mg Hydroxide (Milk Of Magnesia Liq) 30 ml PO DAILY PRN PRN Reason: SEVERE CONSITIPATION Atorvastatin Calcium (Lipitor) 40 mg PO DAILY [facility] Last Admin: 05/09/18 08:54 Dose: 40 mg Calcium Carbonate (Tums Chew) 1,000 mg CHEW TID PRN PRN Reason: DYSPEPSIA Chlorhexidine Gluconate (Chlorhexidine 2% Cloth) 3 pack TOPICAL DAILY@0400 [facility] Stop: 05/12/18 03:59 Last Admin: 05/09/18 04:27 Dose: 3 pack Chlorhexidine Gluconate (Chlorhexidine 2% Cloth) 3 pack TOPICAL DAILY@0400 PRN PRN Reason: Extra cloth needed Stop: 05/12/18 03:59 Docusate Sodium (Colace) 100 mg PO BID PRN PRN Reason: CONSTIPATION Enalaprilat (Vasotec Inj) 1.25 mg IV.PUSH Q4H PRN PRN Reason: For SBP > 220 or DBP > 120 Potassium Chloride (Kcl 40 Meq Premix Inj) 40 meq in 100 mls @ 25 mls/hr IV.SIG Q2H PRN PRN Reason: For Potassium 2.8 - 3.2 mEq/L Potassium Chloride (Kcl 20 Meq Premix Inj) 20 meq in 100 mls @ 50 mls/hr IV.SIG Q2H PRN PRN Reason: For Potassium 3.3 - 3.5 mEq/L Potassium Chloride (Kcl 40 Meq Premix Inj) 40 meq in 100 mls @ 25 mls/hr IV.SIG UNSCH PRN PRN Reason: For Potassium 3.3 - 3.5 mEq/L Sodium Phosphate 30 mmol/ (Sodium Chloride) 260 mls @ 42 mls/hr IV.SIG UNSCH PRN PRN Reason: For Phosphorus < 2.5 mg/dL Potassium Phosphate 30 mmol/ (Sodium Chloride) 260 mls @ 42 mls/hr IV.SIG UNSCH PRN PRN Reason: SEE LABEL COMMENTS Magnesium Sulfate 4 gm/ Sodium (Chloride) 100 mls @ 50 mls/hr IV.SIG UNSCH PRN PRN Reason: For Magnesium 0.9 - 1.1 mg/dL Potassium Chloride (Kcl 20 Meq Premix Inj) 20 meq in 100 mls @ 50 mls/hr IV.SIG Q2H PRN PRN Reason: For Potassium 2.8 - 3.2 mEq/L Magnesium Sulfate 2 gm/ Sodium (Chloride) 100 mls @ 50 mls/hr IV.SIG UNSCH PRN PRN Reason: For Magnesium 1.2 - 1.6 mg/dL Ceftriaxone Sodium 1,000 mg/ (Sodium Chloride) 100 mls @ 200 mls/hr IV.SIG Q24H [facility] Last Infusion: 05/09/18 09:30 Dose: Infused Magnesium Oxide (Mag-Ox) 800 mg PO UNSCH PRN PRN Reason: For Magnesium 1.2 - 1.6 mg/dL Ondansetron HCl (Zofran Inj) 4 mg IV.PUSH Q6H PRN PRN Reason: NAUSEA Potassium Bicarb/Potassium Chloride (K-Lyte Cl Eff) 50 meq PO UNSCH PRN PRN Reason: For Potassium 3.3 - 3.5 mEq/L Potassium Phosphate (K-Phos Original) 2,000 mg PO Q4H PRN PRN Reason: Phosphorus Less Than 2.5 mg/dL Potassium Phosphate (K-Phos Original) 2,000 mg PO UNSCH PRN PRN Reason: SEE LABEL COMMENTS Senna/Docusate Sodium (Ana-Colace) 1 tab PO BID PRN PRN Reason: CONSTIPATION Sodium Chloride (Ns Flush) 2 ml IV.FLUSH BID [facility] Last Admin: 05/09/18 10:09 Dose: 2 ml Sodium Chloride (Ns Flush) 2 ml IV.FLUSH PRN PRN PRN Reason: FLUSH AFTER USING IV ACCESS Allergies/Adverse Reactions: Allergies Allergy/AdvReac Type Severity Reaction Status Date / Time No Known Allergies Allergy none Uncoded 05/05/18 09:35 Review of Systems All other systems reviewed negative except as stated in HPI Physical Exam Vital signs: Vital Signs 05/08/18 14:00 05/08/18 16:00 05/08/18 18:00 Temperature 98.1 F Pulse Rate 55 L 50 L 57 L Respiratory Rate 16 Blood Pressure 139/63 Pulse Oximetry 94 L 05/08/18 20:00 05/08/18 20:41 05/08/18 22:00 Temperature 98.1 F Pulse Rate 58 L 60 Respiratory Rate 21 Blood Pressure 123/60 Pulse Oximetry 94 L 93 L 05/09/18 00:00 05/09/18 02:00 05/09/18 04:00 Temperature 97.6 F Pulse Rate 46 L 54 L 44 L Respiratory Rate 15 17 Blood Pressure 125/59 L 113/54 L Pulse Oximetry 94 L 95 05/09/18 06:00 05/09/18 08:00 05/09/18 10:00 Temperature 97.9 F Pulse Rate 46 L 52 L 62 Respiratory Rate 18 Blood Pressure 162/61 H Pulse Oximetry 96 05/09/18 12:00 05/09/18 12:57 Temperature 98.5 F Pulse Rate 60 56 L Respiratory Rate 20 Blood Pressure 160/69 H Pulse Oximetry 97 Intake & Output 05/08/18 05/09/18 05/09/18 18:59 06:59 18:59 Intake Total 580 / 580 340 / 340 Output Total 400 / 400 Balance 180 / 180 340 / 340 Weight 58.7 kg Intake: IV 100 / 100 100 / 100 Rocephin Inj 1,000 MG In NS Inj 100 / 100 100 / 100 100 ML @ 200 mls/hr IV.SIG Q24H [facility] Rx#:[id number] Oral 480 / 480 240 / 240 Output: Urine 400 / 400 Other: # Voids 2 2 2 Date of Last Bowel Movement 05/08/18 05/08/18 05/08/18 # Bowel Movements 1 Narrative: GENERAL: In no acute distress SKIN: Warm and dry. HEAD: Atraumatic. Normocephalic. EYES: Pupils equal and round. No scleral icterus. No injection or drainage. ENT: No nasal bleeding or discharge. Mucous membranes pink and moist. NECK: Trachea midline. No JVD. CARDIOVASCULAR: Regular rate and rhythm. RESPIRATORY: No accessory muscle use. Clear to auscultation. Breath sounds equal bilaterally. GASTROINTESTINAL: Abdomen soft, non-tender, nondistended. MUSCULOSKELETAL: Extremities without clubbing, cyanosis, or edema. No obvious deformities. NEUROLOGICAL: Awake and alert, oriented to self new she is in hospital unable to give the exact date. Pleasant, able name simple objects dysnomia and others. Difficulty with more complex motor requests, visual gallagher grossly full no facial asymmetry OU surgical extraction cataract changes able raise all 4 extremity gravity for greater than 5 seconds - Constitutional no acute distress - Routine HEENT Exam Head: Present: normocephalic - Urinary Catheter Management Female External Cath placed during this visit: no Objective Laboratory Results - last 24 hr 05/09/18 10:15 Sodium 140 Potassium 3.8 Chloride 108 H Carbon Dioxide 25.1 Anion Gap 7 BUN 18 Creatinine 0.76 Estimated GFR 74 L Random Glucose 120 H Calcium 9.2 Microbiology 05/06/18 16:25 Urine Culture - Final Clean Catch Urine Klebsiella pneumoniae Review/Management - Diagnosis (1) CVA (cerebral vascular accident) Code(s): I63.9 - Cerebral infarction, unspecified Status: Acute Current Visit: Yes (2) Acute ischemic left MCA stroke Code(s): I63.512 - Cerebral infarction due to unspecified occlusion or stenosis of left middle cerebral artery Status: Acute Current Visit: Yes - Review/Management Plan: CT brain scan reviewed hemorrhagic transformation of left temporal stroke. No significant edema no shift CT brain carotids negative. Lipid within normal limits echo showing good ejection fraction Question etiology of her stroke Cardiac arrhythmia versus hypercoagulable state Recommendations Appreciate cardiology and hematology evaluation Patient doing well Follow-up CT brain noncontrast in a.m. Speech therapy (1) CVA (cerebral vascular accident) Qualifiers: CVA mechanism: unspecified Qualified Code(s): I63.9 - Cerebral infarction, unspecified
--- NOTE | 2018-05-09 16:14 | P.PNCA ---
Subjective Interval history: Doing better overall Per the family, seems back close to baseline Able to answer questions much better Medications and Allergies Active Medications: Active Medications Acetaminophen (Tylenol) 650 mg PO Q4H PRN PRN Reason: Temp > 100.4 Al Hydrox/Mg Hydrox/Simethicone (Mag-Al Plus Susp Liq) 30 ml PO Q6H PRN PRN Reason: DYSPEPSIA Al Hydroxide/Mg Hydroxide (Milk Of Magnesia Liq) 30 ml PO DAILY PRN PRN Reason: SEVERE CONSITIPATION Atorvastatin Calcium (Lipitor) 40 mg PO DAILY [facility] Last Admin: 05/09/18 08:54 Dose: 40 mg Calcium Carbonate (Tums Chew) 1,000 mg CHEW TID PRN PRN Reason: DYSPEPSIA Chlorhexidine Gluconate (Chlorhexidine 2% Cloth) 3 pack TOPICAL DAILY@0400 [facility] Stop: 05/12/18 03:59 Last Admin: 05/09/18 04:27 Dose: 3 pack Chlorhexidine Gluconate (Chlorhexidine 2% Cloth) 3 pack TOPICAL DAILY@0400 PRN PRN Reason: Extra cloth needed Stop: 05/12/18 03:59 Docusate Sodium (Colace) 100 mg PO BID PRN PRN Reason: CONSTIPATION Enalaprilat (Vasotec Inj) 1.25 mg IV.PUSH Q4H PRN PRN Reason: For SBP > 220 or DBP > 120 Potassium Chloride (Kcl 40 Meq Premix Inj) 40 meq in 100 mls @ 25 mls/hr IV.SIG Q2H PRN PRN Reason: For Potassium 2.8 - 3.2 mEq/L Potassium Chloride (Kcl 20 Meq Premix Inj) 20 meq in 100 mls @ 50 mls/hr IV.SIG Q2H PRN PRN Reason: For Potassium 3.3 - 3.5 mEq/L Potassium Chloride (Kcl 40 Meq Premix Inj) 40 meq in 100 mls @ 25 mls/hr IV.SIG UNSCH PRN PRN Reason: For Potassium 3.3 - 3.5 mEq/L Sodium Phosphate 30 mmol/ (Sodium Chloride) 260 mls @ 42 mls/hr IV.SIG UNSCH PRN PRN Reason: For Phosphorus < 2.5 mg/dL Potassium Phosphate 30 mmol/ (Sodium Chloride) 260 mls @ 42 mls/hr IV.SIG UNSCH PRN PRN Reason: SEE LABEL COMMENTS Magnesium Sulfate 4 gm/ Sodium (Chloride) 100 mls @ 50 mls/hr IV.SIG UNSCH PRN PRN Reason: For Magnesium 0.9 - 1.1 mg/dL Potassium Chloride (Kcl 20 Meq Premix Inj) 20 meq in 100 mls @ 50 mls/hr IV.SIG Q2H PRN PRN Reason: For Potassium 2.8 - 3.2 mEq/L Magnesium Sulfate 2 gm/ Sodium (Chloride) 100 mls @ 50 mls/hr IV.SIG UNSCH PRN PRN Reason: For Magnesium 1.2 - 1.6 mg/dL Ceftriaxone Sodium 1,000 mg/ (Sodium Chloride) 100 mls @ 200 mls/hr IV.SIG Q24H [facility] Last Infusion: 05/09/18 09:30 Dose: Infused Magnesium Oxide (Mag-Ox) 800 mg PO UNSCH PRN PRN Reason: For Magnesium 1.2 - 1.6 mg/dL Ondansetron HCl (Zofran Inj) 4 mg IV.PUSH Q6H PRN PRN Reason: NAUSEA Potassium Bicarb/Potassium Chloride (K-Lyte Cl Eff) 50 meq PO UNSCH PRN PRN Reason: For Potassium 3.3 - 3.5 mEq/L Potassium Phosphate (K-Phos Original) 2,000 mg PO Q4H PRN PRN Reason: Phosphorus Less Than 2.5 mg/dL Potassium Phosphate (K-Phos Original) 2,000 mg PO UNSCH PRN PRN Reason: SEE LABEL COMMENTS Senna/Docusate Sodium (Ana-Colace) 1 tab PO BID PRN PRN Reason: CONSTIPATION Sodium Chloride (Ns Flush) 2 ml IV.FLUSH BID [facility] Last Admin: 05/09/18 10:09 Dose: 2 ml Sodium Chloride (Ns Flush) 2 ml IV.FLUSH PRN PRN PRN Reason: FLUSH AFTER USING IV ACCESS Allergies Allergy/AdvReac Type Severity Reaction Status Date / Time No Known Allergies Allergy none Uncoded 05/05/18 09:35 Home Medications Medication Instructions Recorded Confirmed Type atorvastatin 20 mg PO DAILY 05/05/18 05/05/18 History levothyroxine 88 mcg PO DAILY 05/08/18 05/08/18 History Physical Exam Vital signs: Vital Signs 05/08/18 18:00 05/08/18 20:00 05/08/18 20:41 Temperature 98.1 F Pulse Rate 57 L 58 L Respiratory Rate 21 Blood Pressure 123/60 Pulse Oximetry 94 L 93 L 05/08/18 22:00 05/09/18 00:00 05/09/18 02:00 Temperature Pulse Rate 60 46 L 54 L Respiratory Rate 15 Blood Pressure 125/59 L Pulse Oximetry 94 L 05/09/18 04:00 05/09/18 06:00 05/09/18 08:00 Temperature 97.6 F 97.9 F Pulse Rate 44 L 46 L 52 L Respiratory Rate 17 18 Blood Pressure 113/54 L 162/61 H Pulse Oximetry 95 96 05/09/18 10:00 05/09/18 12:00 05/09/18 12:57 Temperature 98.5 F Pulse Rate 62 60 56 L Respiratory Rate 20 Blood Pressure 160/69 H Pulse Oximetry 97 05/09/18 15:37 Temperature Pulse Rate Respiratory Rate Blood Pressure Pulse Oximetry 95 Intake & Output 05/08/18 05/09/18 05/09/18 18:59 06:59 18:59 Intake Total 580 / 580 340 / 340 Output Total 400 / 400 Balance 180 / 180 340 / 340 Weight 58.7 kg Intake: IV 100 / 100 100 / 100 Rocephin Inj 1,000 MG In NS Inj 100 / 100 100 / 100 100 ML @ 200 mls/hr IV.SIG Q24H [facility] Rx#:[id number] Oral 480 / 480 240 / 240 Output: Urine 400 / 400 Other: # Voids 2 2 2 Date of Last Bowel Movement 05/08/18 05/08/18 05/08/18 # Bowel Movements 1 Narrative: GENERAL: In no acute distress SKIN: Warm and dry. HEAD: Atraumatic. Normocephalic. EYES: Pupils equal and round. No scleral icterus. No injection or drainage. ENT: No nasal bleeding or discharge. Mucous membranes pink and moist. NECK: Trachea midline. No JVD. CARDIOVASCULAR: Regular rate and rhythm. RESPIRATORY: No accessory muscle use. Clear to auscultation. Breath sounds equal bilaterally. GASTROINTESTINAL: Abdomen soft, non-tender, nondistended. MUSCULOSKELETAL: Extremities without clubbing, cyanosis, or edema. No obvious deformities. NEUROLOGICAL: Awake and alert, oriented to self new she is in hospital unable to give the exact date. Pleasant, able name simple objects dysnomia and others. Difficulty with more complex motor requests, visual gallahger grossly full no facial asymmetry OU surgical extraction cataract changes able raise all 4 extremity gravity for greater than 5 seconds - Urinary Catheter Management Female External Cath placed during this visit: no Results 05/05/18 08:58 05/09/18 10:15 Comprehensive Metabolic Panel 05/09/18 Range/Units 10:15 Sodium 140 (136-145) meq/L Potassium 3.8 (3.5-5.1) meq/L Chloride 108 H (98-107) meq/L Carbon Dioxide 25.1 (21.0-32.0) meq/L BUN 18 (7-18) mg/dL Creatinine 0.76 (0.50-1.00) mg/dL Calcium 9.2 (8.5-10.1) mg/dL Intake and Output 05/09/18 05/09/18 05/09/18 06:59 14:59 22:59 Intake Total 340 / 340 Balance 340 / 340 Intake: IV 100 / 100 Rocephin Inj 1,000 MG In NS Inj 100 / 100 100 ML @ 200 mls/hr IV.SIG Q24H [facility] Rx#:[id number] Oral 240 / 240 Other: # Voids 2 2 Date of Last Bowel Movement 05/08/18 05/08/18 Weight 58.7 kg - Imaging and Cardiology Imaging: Impressions Head CT 05/08/18 00:00 Remote left cerebellar lacunar infarcts. There is hypodensity identified in the left temporal region again seen and not significantly changed. There are no fractures. There is no hyperdense hemorrhage seen. CONCLUSION: 1. Left temporal occipital infarct again seen with edema. 2. No hemorrhage. . Assessment and Plan - Assessment (1) CVA (cerebral vascular accident) Code(s): I63.9 - Cerebral infarction, unspecified Status: Acute (2) Acute ischemic left MCA stroke Code(s): I63.512 - Cerebral infarction due to unspecified occlusion or stenosis of left middle cerebral artery Status: Acute (3) Cerebral parenchymal hemorrhage Code(s): I61.9 - Nontraumatic intracerebral hemorrhage, unspecified Status: Acute - Plan 1) Large left temporal CVA with hemorrhagic conversion Anti-platelets and anti-coagulants held Very little risk factors Agree with DANTE and Loop recorder placement to rule out PFO and AFib as causes Risks, benefits and alternatives discussed with the patient, her and daughter 2) HTN today May need to add BP med if continues to be elevated Probably DAVID-I vs Norvasc (1) CVA (cerebral vascular accident) Qualifiers: CVA mechanism: unspecified Qualified Code(s): I63.9 - Cerebral infarction, unspecified (3) Cerebral parenchymal hemorrhage Qualifiers: Intracerebral hemorrhage etiology: nontraumatic Cerebral hemorrhage location : cerebral hemisphere, unspecified portion Laterality: left Qualified Code(s) : I61.2 - Nontraumatic intracerebral hemorrhage in hemisphere, unspecified
[2018-05-09] MEDS ORDERED: Chlorhexidine Gluconate 2% 1 Pack (2 Cloths) TOPICAL ONE (16:54)
[2018-05-09] MEDS ORDERED: Sodium Chlor 0.9% Inj 500 ML IV.SIG SCH (17:00)
--- NOTE | 2018-05-09 20:47 | P.PNONC ---
Subjective Interval history: No new complaint Objective Vital Signs/Intake & Output: Vital Signs 05/08/18 22:00 05/09/18 00:00 05/09/18 02:00 Temperature Pulse Rate 60 46 L 54 L Respiratory Rate 15 Blood Pressure 125/59 L Pulse Oximetry 94 L 05/09/18 04:00 05/09/18 06:00 05/09/18 08:00 Temperature 97.6 F 97.9 F Pulse Rate 44 L 46 L 52 L Respiratory Rate 17 18 Blood Pressure 113/54 L 162/61 H Pulse Oximetry 95 96 05/09/18 10:00 05/09/18 12:00 05/09/18 12:57 Temperature 98.5 F Pulse Rate 62 60 56 L Respiratory Rate 20 Blood Pressure 160/69 H Pulse Oximetry 97 05/09/18 15:37 05/09/18 16:00 05/09/18 20:00 Temperature 97.8 F 98.2 F Pulse Rate 58 L 56 L Respiratory Rate 18 16 Blood Pressure 121/58 L 125/59 L Pulse Oximetry 95 96 94 L Intake & Output 05/09/18 05/09/18 05/10/18 06:59 18:59 06:59 Intake Total 700 / 700 Balance 700 / 700 Weight 58.7 kg Intake: IV 100 / 100 Rocephin Inj 1,000 MG In NS Inj 100 / 100 100 ML @ 200 mls/hr IV.SIG Q24H [facility] Rx#:[id number] Oral 600 / 600 Other: # Voids 2 2 Date of Last Bowel Movement 05/08/18 05/08/18 Result Diagrams: 05/05/18 08:58 05/09/18 10:15 Laboratory Results: Laboratory Results - last 24 hr 05/09/18 10:15 Sodium 140 Potassium 3.8 Chloride 108 H Carbon Dioxide 25.1 Anion Gap 7 BUN 18 Creatinine 0.76 Estimated GFR 74 L Random Glucose 120 H Calcium 9.2 Culture Results: Microbiology 05/06/18 16:25 Urine Culture - Final Clean Catch Urine Klebsiella pneumoniae Medications: Active Medications Generic Name Dose Route Start Last Admin Trade Name Freq PRN Reason Stop Dose Admin Atorvastatin Calcium 40 mg 05/06/18 12:00 05/09/18 08:54 Lipitor PO 40 mg DAILY [facility] Administration Chlorhexidine Gluconate 3 pack 05/07/18 04:00 05/09/18 04:27 Chlorhexidine 2% Cloth TOPICAL 05/12/18 03:59 3 pack DAILY@0400 [facility] Administration Ceftriaxone Sodium 1,000 mg/ 100 mls @ 200 mls/hr 05/08/18 09:00 05/09/18 09: 30 Sodium Chloride IV.SIG Infused Q24H [facility] Infusion Sodium Chloride 2 ml 05/05/18 21:00 05/09/18 10:09 Ns Flush IV.FLUSH 2 ml BID [facility] Administration Objective Remarks: GENERAL: Well-nourished, well-developed patient. SKIN: Warm and dry. HEAD: Normocephalic. EYES: No scleral icterus. No injection or drainage. NECK: Supple, trachea midline. No JVD or lymphadenopathy. LYMPHATIC: No adenopathy. CARDIOVASCULAR: Regular rate and rhythm without murmurs. RESPIRATORY: Breath sounds equal bilaterally. No accessory muscle use. GASTROINTESTINAL: Abdomen soft, non-tender, nondistended. EXTREMITIES: No cyanosis, or edema. NEUROLOGICAL: Awake, alert, and oriented x2. Assessment/Plan (1) CVA (cerebral vascular accident) Code(s): I63.9 - Cerebral infarction, unspecified Status: Acute - Plan Hypercoagulable panel drawn today Result will take 2 weeks to come back (1) CVA (cerebral vascular accident) Qualifiers: CVA mechanism: unspecified Qualified Code(s): I63.9 - Cerebral infarction, unspecified
[2018-05-10] MEDS: Chlorhexidine Gluconate 2% 1 Pack (2 Cloths) TOPICAL SCH (04:31)
--- NOTE | 2018-05-10 08:23 | CT ---
EXAM DATE: 05/10/2018 8:16 AM EDT AGE/SEX: 77 years / Female INDICATIONS: Altered mental status. CLINICAL DATA: This is the patient's initial encounter. Patient reports that signs and symptoms have been present for 1 day and indicates a pain score of 0/10. MEDICAL/SURGICAL HISTORY: Stroke. Appendectomy. Thyroid disease. RADIATION DOSE: 39.87 CTDI (mGy) COMPARISON: [facility], CTA HEAD W CONTRAST W 3D, 05/05/2018. . TECHNIQUE: CT of the head without contrast. Using automated exposure control and adjustment of the mA and/or kV according to patient size, radiation dose was kept as low as reasonably achievable to ob tain optimal diagnostic quality images. DICOM format image data is available electronically for revi ew and comparison. FINDINGS: Cerebrum: Evolving left temporal infarct. No intercurrent hemorrhage or significant new mass effect. The ventricles are normal for age. No evidence of midline shift, mass lesion, or hemorrhage. No ext raaxial fluid collections are seen. Posterior Fossa: The cerebellum and brainstem are intact. The 4th ventricle is midline. The cerebe llopontine angle is unremarkable. Extracranial: The visualized portion of the orbits is intact. Skull: The calvaria is intact. No evidence of skull fracture. CONCLUSION: 1. Continued evolution of left temporal lobe infarct without intercurrent hemorrhage or significant new mass effect. . Electronically signed by: Juliocesar Mahmood MD 05/10/2018 8:21 AM EDT
--- NOTE | 2018-05-10 10:28 | P.PNIM ---
Subjective Interval history: The patient was resting comfortably in bed. Her daughter was at the bedside. The patient said that her brain was not working all the way. She said that there were things she was forgetting. She could not remember certain people or where she was. She feels like she has full strength in the upper and lower extremities. She denies any numbness or tingling. Physical Exam Vital signs: Vital Signs 05/09/18 12:00 05/09/18 12:57 05/09/18 15:37 Temperature 98.5 F Pulse Rate 60 56 L Respiratory Rate 20 Blood Pressure 160/69 H Pulse Oximetry 97 95 05/09/18 16:00 05/09/18 20:00 05/10/18 00:00 Temperature 97.8 F 98.2 F 98.3 F Pulse Rate 58 L 60 47 L Respiratory Rate 18 16 16 Blood Pressure 121/58 L 125/59 L 115/59 L Pulse Oximetry 96 94 L 95 05/10/18 04:00 05/10/18 05:17 05/10/18 08:00 Temperature 98.4 F 97.3 F L Pulse Rate 55 L 53 L 60 Respiratory Rate 16 18 Blood Pressure 121/65 135/61 Pulse Oximetry 94 L 97 Intake & Output 05/09/18 05/10/18 05/10/18 18:59 06:59 18:59 Intake Total 700 / 700 Balance 700 / 700 Weight 73.7 kg Intake: IV 100 / 100 Rocephin Inj 1,000 MG In NS Inj 100 / 100 100 ML @ 200 mls/hr IV.SIG Q24H [facility] Rx#:[id number] Oral 600 / 600 Other: # Voids 2 1 Date of Last Bowel Movement 05/08/18 05/08/18 05/09/18 # Bowel Movements 1 Narrative: GENERAL: No acute distress. SKIN: Warm and dry. HEAD: Atraumatic. Normocephalic. EYES: Pupils equal and round. No scleral icterus. No injection or drainage. ENT: No nasal bleeding or discharge. Mucous membranes pink and moist. NECK: Trachea midline. Airway widely patent, no obstructive noises. CARDIOVASCULAR: Regular rate and rhythm. Normal S1, S2. No JVD. RESPIRATORY: No accessory muscle use. Clear to auscultation. Comfortable respiratory pattern. GASTROINTESTINAL: Abdomen soft, non-tender, nondistended. No guarding. MUSCULOSKELETAL: Extremities without clubbing, cyanosis, or edema. No obvious deformities. Warm, well-perfused. NEUROLOGICAL: Awake and alert, oriented to person. No obvious cranial nerve deficits. Motor function grossly intact bilaterally. - Urinary Catheter Management Female External Cath placed during this visit: no Results - Labs CBC & Chem 7: 05/05/18 08:58 05/09/18 10:15 Laboratory Results - last 24 hr 05/09/18 10:15 Sodium 140 Potassium 3.8 Chloride 108 H Carbon Dioxide 25.1 Anion Gap 7 BUN 18 Creatinine 0.76 Estimated GFR 74 L Random Glucose 120 H Calcium 9.2 - Imaging Impressions Head CT 05/10/18 06:00 CONCLUSION: 1. Continued evolution of left temporal lobe infarct without intercurrent hemorrhage or significant new mass effect. . Assessment and Plan - Plan Acute left temporal stroke With expressive and receptive aphasia. MRI and CT reviewed shows acute left temporal stroke. Neurology was consulted. Repeat CT showed possible hemorrhagic conversion, evolution of CVA. -PT/OT/speech. -Continue statin. -ASA on hold. -cardiology consult appreciated. Pending loop recorder placement. -hematology consult appreciated. Hypercoagulable panel pending. -rehab medicine consult. Urinary tract infection Urine culture growing gram-negative rods greater than 100,000 (klebsiella). -Started ceftriaxone 1 g daily 05/08. Hypothyroidism On levothyroxine as an outpt. TSH WNL. -continue home regimen. PROPH: Bilateral lower extremity SCDs; Avoid chemical DVT prophylaxis due to hemorrhagic conversion of CVA. Discharge Planning: Await Loop recorder placement, ? rehab
[2018-05-10] MEDS ORDERED: Lidocaine 2% 100 MG/5 ML Syringe ONE (12:44)
[2018-05-10] MEDS ORDERED: ceFAZolin Inj 2,000 MG in Sodium Chlor 0.9% Inj 100 ML IV.SIG SCH (13:00)
[2018-05-10] MEDS ORDERED: Chlorhexidine Gluconate 2% 1 Pack (2 Cloths) TOPICAL SCH (13:00)
[2018-05-10] MEDS ORDERED: Mupirocin 2% Nasal Oint Topical Syringe EACH NARE SCH (13:00)
[2018-05-10] MEDS ORDERED: Lidocaine PF 1% Inj 5 ML Syringe INFILTRATN ONE (13:08)
[2018-05-10] MEDS: Levothyroxine 88 MCG Tablet PO SCH (15:34)
--- NOTE | 2018-05-11 01:42 | P.PNCA ---
Subjective Interval history: DANTE showing no source of CVA Loop recorder placed Medications and Allergies Active Medications: Active Medications Acetaminophen (Tylenol) 650 mg PO Q4H PRN PRN Reason: Temp > 100.4 Al Hydrox/Mg Hydrox/Simethicone (Mag-Al Plus Susp Liq) 30 ml PO Q6H PRN PRN Reason: DYSPEPSIA Al Hydroxide/Mg Hydroxide (Milk Of Magnesia Liq) 30 ml PO DAILY PRN PRN Reason: SEVERE CONSITIPATION Atorvastatin Calcium (Lipitor) 40 mg PO DAILY [facility] Last Admin: 05/10/18 08:40 Dose: 40 mg Calcium Carbonate (Tums Chew) 1,000 mg CHEW TID PRN PRN Reason: DYSPEPSIA Chlorhexidine Gluconate (Chlorhexidine 2% Cloth) 3 pack TOPICAL DAILY@0400 [facility] Stop: 05/12/18 03:59 Last Admin: 05/10/18 04:31 Dose: Not Given Chlorhexidine Gluconate (Chlorhexidine 2% Cloth) 3 pack TOPICAL DAILY@0400 PRN PRN Reason: Extra cloth needed Stop: 05/12/18 03:59 Chlorhexidine Gluconate (Chlorhexidine 2% Cloth) 3 pack TOPICAL [employer] [facility] Stop: 05/13/18 13:00 Docusate Sodium (Colace) 100 mg PO BID PRN PRN Reason: CONSTIPATION Enalaprilat (Vasotec Inj) 1.25 mg IV.PUSH Q4H PRN PRN Reason: For SBP > 220 or DBP > 120 Potassium Chloride (Kcl 40 Meq Premix Inj) 40 meq in 100 mls @ 25 mls/hr IV.SIG Q2H PRN PRN Reason: For Potassium 2.8 - 3.2 mEq/L Potassium Chloride (Kcl 20 Meq Premix Inj) 20 meq in 100 mls @ 50 mls/hr IV.SIG Q2H PRN PRN Reason: For Potassium 3.3 - 3.5 mEq/L Potassium Chloride (Kcl 40 Meq Premix Inj) 40 meq in 100 mls @ 25 mls/hr IV.SIG UNSCH PRN PRN Reason: For Potassium 3.3 - 3.5 mEq/L Sodium Phosphate 30 mmol/ (Sodium Chloride) 260 mls @ 42 mls/hr IV.SIG UNSCH PRN PRN Reason: For Phosphorus < 2.5 mg/dL Potassium Phosphate 30 mmol/ (Sodium Chloride) 260 mls @ 42 mls/hr IV.SIG UNSCH PRN PRN Reason: SEE LABEL COMMENTS Magnesium Sulfate 4 gm/ Sodium (Chloride) 100 mls @ 50 mls/hr IV.SIG UNSCH PRN PRN Reason: For Magnesium 0.9 - 1.1 mg/dL Potassium Chloride (Kcl 20 Meq Premix Inj) 20 meq in 100 mls @ 50 mls/hr IV.SIG Q2H PRN PRN Reason: For Potassium 2.8 - 3.2 mEq/L Magnesium Sulfate 2 gm/ Sodium (Chloride) 100 mls @ 50 mls/hr IV.SIG UNSCH PRN PRN Reason: For Magnesium 1.2 - 1.6 mg/dL Ceftriaxone Sodium 1,000 mg/ (Sodium Chloride) 100 mls @ 200 mls/hr IV.SIG Q24H [facility] Last Infusion: 05/10/18 10:52 Dose: Infused Sodium Chloride (Ns Inj) 500 mls @ 30 mls/hr IV.SIG .Q10H [facility] Last Admin: 05/10/18 15:34 Dose: Not Given Cefazolin Sodium 2,000 mg/ (Sodium Chloride) 120 mls @ 240 mls/hr IV.SIG [employer] [facility] Stop: 05/13/18 12:59 Last Infusion: 05/10/18 15:35 Dose: Infused Levothyroxine Sodium (Synthroid) 88 mcg PO DAILY@0600 [facility] Last Admin: 05/10/18 15:34 Dose: Not Given Magnesium Oxide (Mag-Ox) 800 mg PO UNSCH PRN PRN Reason: For Magnesium 1.2 - 1.6 mg/dL Mupirocin (Bactroban 2% Nasal Oint) 1 applicatio EACH NARE [employer] [facility] Stop: 05/13/18 13:00 Ondansetron HCl (Zofran Inj) 4 mg IV.PUSH Q6H PRN PRN Reason: NAUSEA Potassium Bicarb/Potassium Chloride (K-Lyte Cl Eff) 50 meq PO UNSCH PRN PRN Reason: For Potassium 3.3 - 3.5 mEq/L Potassium Phosphate (K-Phos Original) 2,000 mg PO Q4H PRN PRN Reason: Phosphorus Less Than 2.5 mg/dL Potassium Phosphate (K-Phos Original) 2,000 mg PO UNSCH PRN PRN Reason: SEE LABEL COMMENTS Povidone Iodine (Betadine 5% Antisepsis Kit) 1 applicatio EACH NARE [employer] [facility] Stop: 05/13/18 13:00 Senna/Docusate Sodium (Ana-Colace) 1 tab PO BID PRN PRN Reason: CONSTIPATION Sodium Chloride (Ns Flush) 2 ml IV.FLUSH BID [facility] Last Admin: 05/10/18 20:27 Dose: 2 ml Sodium Chloride (Ns Flush) 2 ml IV.FLUSH PRN PRN PRN Reason: FLUSH AFTER USING IV ACCESS Allergies Allergy/AdvReac Type Severity Reaction Status Date / Time No Known Allergies Allergy none Uncoded 05/05/18 09:35 Home Medications Medication Instructions Recorded Confirmed Type atorvastatin 20 mg PO DAILY 05/05/18 05/05/18 History levothyroxine 88 mcg PO DAILY 05/08/18 05/08/18 History Physical Exam Vital signs: Vital Signs 05/10/18 04:00 05/10/18 05:17 05/10/18 08:00 Temperature 98.4 F 97.3 F L Pulse Rate 55 L 53 L 60 Respiratory Rate 16 18 Blood Pressure 121/65 135/61 Pulse Oximetry 94 L 97 05/10/18 12:00 05/10/18 15:46 05/10/18 16:00 Temperature 97.7 F 97.7 F 97.7 F Pulse Rate 54 L 53 L 53 L Respiratory Rate 16 15 15 Blood Pressure 118/57 L 143/72 H 135/63 Pulse Oximetry 96 96 96 05/10/18 20:00 05/11/18 00:00 Temperature 97.6 F 97.9 F Pulse Rate 57 L 60 Respiratory Rate 18 18 Blood Pressure 136/60 113/60 Pulse Oximetry 96 95 Intake & Output 05/10/18 05/10/18 05/11/18 06:59 18:59 06:59 Intake Total 220 / 220 Balance 220 / 220 Weight 73.7 kg Intake: IV 220 / 220 Ancef Inj 2,000 MG In NS Inj 120 / 120 100 ML @ 240 mls/hr IV.SIG [employer] [facility] Rx#:[id number] Rocephin Inj 1,000 MG In NS Inj 100 / 100 100 ML @ 200 mls/hr IV.SIG Q24H [facility] Rx#:[id number] Other: # Voids 1 3 Date of Last Bowel Movement 05/08/18 05/09/18 05/10/18 # Bowel Movements 1 Narrative: GENERAL: No acute distress. SKIN: Warm and dry. HEAD: Atraumatic. Normocephalic. EYES: Pupils equal and round. No scleral icterus. No injection or drainage. ENT: No nasal bleeding or discharge. Mucous membranes pink and moist. NECK: Trachea midline. Airway widely patent, no obstructive noises. CARDIOVASCULAR: Regular rate and rhythm. Normal S1, S2. No JVD. RESPIRATORY: No accessory muscle use. Clear to auscultation. Comfortable respiratory pattern. GASTROINTESTINAL: Abdomen soft, non-tender, nondistended. No guarding. MUSCULOSKELETAL: Extremities without clubbing, cyanosis, or edema. No obvious deformities. Warm, well-perfused. NEUROLOGICAL: Awake and alert, oriented to person. No obvious cranial nerve deficits. Motor function grossly intact bilaterally. - Urinary Catheter Management Female External Cath placed during this visit: no Results 05/05/18 08:58 05/09/18 10:15 Comprehensive Metabolic Panel 05/09/18 Range/Units 10:15 Sodium 140 (136-145) meq/L Potassium 3.8 (3.5-5.1) meq/L Chloride 108 H (98-107) meq/L Carbon Dioxide 25.1 (21.0-32.0) meq/L BUN 18 (7-18) mg/dL Creatinine 0.76 (0.50-1.00) mg/dL Calcium 9.2 (8.5-10.1) mg/dL Intake and Output 05/10/18 05/10/18 05/11/18 14:59 22:59 06:59 Intake Total 100 / 100 120 / 120 Balance 100 / 100 120 / 120 Intake: IV 100 / 100 120 / 120 Ancef Inj 2,000 MG In NS Inj 120 / 120 100 ML @ 240 mls/hr IV.SIG [employer] [facility] Rx#:[id number] Rocephin Inj 1,000 MG In NS Inj 100 / 100 100 ML @ 200 mls/hr IV.SIG Q24H [facility] Rx#:[id number] Other: # Voids 3 Date of Last Bowel Movement 05/09/18 05/10/18 - Imaging and Cardiology Imaging: Impressions Head CT 05/10/18 06:00 CONCLUSION: 1. Continued evolution of left temporal lobe infarct without intercurrent hemorrhage or significant new mass effect. . Assessment and Plan - Assessment (1) CVA (cerebral vascular accident) Code(s): I63.9 - Cerebral infarction, unspecified Status: Acute (2) Acute ischemic left MCA stroke Code(s): I63.512 - Cerebral infarction due to unspecified occlusion or stenosis of left middle cerebral artery Status: Acute (3) Cerebral parenchymal hemorrhage Code(s): I61.9 - Nontraumatic intracerebral hemorrhage, unspecified Status: Acute - Plan 1) Large left temporal CVA with hemorrhagic conversion Anti-platelets and anti-coagulants held Very little risk factors DANTE showing no source of embolism Loop recorder placed 2) HTN Blood pressure has since stabilized (1) CVA (cerebral vascular accident) Qualifiers: CVA mechanism: unspecified Qualified Code(s): I63.9 - Cerebral infarction, unspecified (3) Cerebral parenchymal hemorrhage Qualifiers: Intracerebral hemorrhage etiology: nontraumatic Cerebral hemorrhage location : cerebral hemisphere, unspecified portion Laterality: left Qualified Code(s) : I61.2 - Nontraumatic intracerebral hemorrhage in hemisphere, unspecified
[2018-05-11] MEDS: Chlorhexidine Gluconate 2% 1 Pack (2 Cloths) TOPICAL SCH (05:13)
[2018-05-11] MEDS: Levothyroxine 88 MCG Tablet PO SCH (05:31)
[2018-05-11 10:12] VITALS: RESP 17
[2018-05-11 12:31] VITALS: BP 114/57; PULSE 59; TEMP 97.9; O2SAT 95
--- NOTE | 2018-05-11 13:00 | P.PNCA ---
Subjective Interval history: No event over night No complaints, family feel she is back to baseline Medications and Allergies Active Medications: Active Medications Acetaminophen (Tylenol) 650 mg PO Q4H PRN PRN Reason: Temp > 100.4 Al Hydrox/Mg Hydrox/Simethicone (Mag-Al Plus Susp Liq) 30 ml PO Q6H PRN PRN Reason: DYSPEPSIA Al Hydroxide/Mg Hydroxide (Milk Of Magnesia Liq) 30 ml PO DAILY PRN PRN Reason: SEVERE CONSITIPATION Atorvastatin Calcium (Lipitor) 40 mg PO DAILY [facility] Last Admin: 05/11/18 08:35 Dose: 40 mg Calcium Carbonate (Tums Chew) 1,000 mg CHEW TID PRN PRN Reason: DYSPEPSIA Chlorhexidine Gluconate (Chlorhexidine 2% Cloth) 3 pack TOPICAL DAILY@0400 [facility] Stop: 05/12/18 03:59 Last Admin: 05/11/18 05:13 Dose: Not Given Chlorhexidine Gluconate (Chlorhexidine 2% Cloth) 3 pack TOPICAL DAILY@0400 PRN PRN Reason: Extra cloth needed Stop: 05/12/18 03:59 Chlorhexidine Gluconate (Chlorhexidine 2% Cloth) 3 pack TOPICAL [employer] [facility] Stop: 05/13/18 13:00 Docusate Sodium (Colace) 100 mg PO BID PRN PRN Reason: CONSTIPATION Enalaprilat (Vasotec Inj) 1.25 mg IV.PUSH Q4H PRN PRN Reason: For SBP > 220 or DBP > 120 Potassium Chloride (Kcl 40 Meq Premix Inj) 40 meq in 100 mls @ 25 mls/hr IV.SIG Q2H PRN PRN Reason: For Potassium 2.8 - 3.2 mEq/L Potassium Chloride (Kcl 20 Meq Premix Inj) 20 meq in 100 mls @ 50 mls/hr IV.SIG Q2H PRN PRN Reason: For Potassium 3.3 - 3.5 mEq/L Potassium Chloride (Kcl 40 Meq Premix Inj) 40 meq in 100 mls @ 25 mls/hr IV.SIG UNSCH PRN PRN Reason: For Potassium 3.3 - 3.5 mEq/L Sodium Phosphate 30 mmol/ (Sodium Chloride) 260 mls @ 42 mls/hr IV.SIG UNSCH PRN PRN Reason: For Phosphorus < 2.5 mg/dL Potassium Phosphate 30 mmol/ (Sodium Chloride) 260 mls @ 42 mls/hr IV.SIG UNSCH PRN PRN Reason: SEE LABEL COMMENTS Magnesium Sulfate 4 gm/ Sodium (Chloride) 100 mls @ 50 mls/hr IV.SIG UNSCH PRN PRN Reason: For Magnesium 0.9 - 1.1 mg/dL Potassium Chloride (Kcl 20 Meq Premix Inj) 20 meq in 100 mls @ 50 mls/hr IV.SIG Q2H PRN PRN Reason: For Potassium 2.8 - 3.2 mEq/L Magnesium Sulfate 2 gm/ Sodium (Chloride) 100 mls @ 50 mls/hr IV.SIG UNSCH PRN PRN Reason: For Magnesium 1.2 - 1.6 mg/dL Ceftriaxone Sodium 1,000 mg/ (Sodium Chloride) 100 mls @ 200 mls/hr IV.SIG Q24H [facility] Last Infusion: 05/11/18 09:17 Dose: Infused Sodium Chloride (Ns Inj) 500 mls @ 30 mls/hr IV.SIG .Q10H [facility] Last Admin: 05/10/18 15:34 Dose: Not Given Cefazolin Sodium 2,000 mg/ (Sodium Chloride) 120 mls @ 240 mls/hr IV.SIG [employer] [facility] Stop: 05/13/18 12:59 Last Infusion: 05/10/18 15:35 Dose: Infused Levothyroxine Sodium (Synthroid) 88 mcg PO DAILY@0600 [facility] Last Admin: 05/11/18 05:31 Dose: 88 mcg Magnesium Oxide (Mag-Ox) 800 mg PO UNSCH PRN PRN Reason: For Magnesium 1.2 - 1.6 mg/dL Mupirocin (Bactroban 2% Nasal Oint) 1 applicatio EACH NARE [employer] [facility] Stop: 05/13/18 13:00 Ondansetron HCl (Zofran Inj) 4 mg IV.PUSH Q6H PRN PRN Reason: NAUSEA Potassium Bicarb/Potassium Chloride (K-Lyte Cl Eff) 50 meq PO UNSCH PRN PRN Reason: For Potassium 3.3 - 3.5 mEq/L Potassium Phosphate (K-Phos Original) 2,000 mg PO Q4H PRN PRN Reason: Phosphorus Less Than 2.5 mg/dL Potassium Phosphate (K-Phos Original) 2,000 mg PO UNSCH PRN PRN Reason: SEE LABEL COMMENTS Povidone Iodine (Betadine 5% Antisepsis Kit) 1 applicatio EACH NARE [employer] [facility] Stop: 05/13/18 13:00 Senna/Docusate Sodium (Ana-Colace) 1 tab PO BID PRN PRN Reason: CONSTIPATION Sodium Chloride (Ns Flush) 2 ml IV.FLUSH BID [facility] Last Admin: 05/11/18 09:18 Dose: 2 ml Sodium Chloride (Ns Flush) 2 ml IV.FLUSH PRN PRN PRN Reason: FLUSH AFTER USING IV ACCESS Allergies Allergy/AdvReac Type Severity Reaction Status Date / Time No Known Allergies Allergy none Uncoded 05/05/18 09:35 Home Medications Medication Instructions Recorded Confirmed Type atorvastatin 20 mg PO DAILY 05/05/18 05/05/18 History levothyroxine 88 mcg PO DAILY 05/08/18 05/08/18 History Physical Exam Vital signs: Vital Signs 05/10/18 15:46 05/10/18 16:00 05/10/18 20:00 Temperature 97.7 F 97.7 F 97.6 F Pulse Rate 53 L 53 L 57 L Respiratory Rate 15 15 18 Blood Pressure 143/72 H 135/63 136/60 Pulse Oximetry 96 96 96 05/11/18 00:00 05/11/18 04:00 05/11/18 08:00 Temperature 97.9 F 97.8 F 97.6 F Pulse Rate 50 L 56 L 58 L Respiratory Rate 18 18 17 Blood Pressure 113/60 137/63 117/58 L Pulse Oximetry 95 95 96 05/11/18 12:00 Temperature 97.9 F Pulse Rate 59 L Respiratory Rate 17 Blood Pressure 114/57 L Pulse Oximetry 95 Intake & Output 05/10/18 05/11/18 05/11/18 18:59 06:59 18:59 Intake Total 220 / 220 100 / 100 Balance 220 / 220 100 / 100 Weight 59 kg Intake: IV 220 / 220 100 / 100 Ancef Inj 2,000 MG In NS Inj 120 / 120 100 ML @ 240 mls/hr IV.SIG [employer] [facility] Rx#:[id number] Rocephin Inj 1,000 MG In NS Inj 100 / 100 100 / 100 100 ML @ 200 mls/hr IV.SIG Q24H [facility] Rx#:[id number] Other: # Voids 3 3 Date of Last Bowel Movement 05/09/18 05/10/18 05/10/18 Narrative: GENERAL: No acute distress. SKIN: Warm and dry. HEAD: Atraumatic. Normocephalic. EYES: Pupils equal and round. No scleral icterus. No injection or drainage. ENT: No nasal bleeding or discharge. Mucous membranes pink and moist. NECK: Trachea midline. Airway widely patent, no obstructive noises. CARDIOVASCULAR: Regular rate and rhythm. Normal S1, S2. No JVD. RESPIRATORY: No accessory muscle use. Clear to auscultation. Comfortable respiratory pattern. GASTROINTESTINAL: Abdomen soft, non-tender, nondistended. No guarding. MUSCULOSKELETAL: Extremities without clubbing, cyanosis, or edema. No obvious deformities. Warm, well-perfused. NEUROLOGICAL: Awake and alert, oriented to person. No obvious cranial nerve deficits. Motor function grossly intact bilaterally. - Urinary Catheter Management Female External Cath placed during this visit: no Results 05/05/18 08:58 05/09/18 10:15 Intake and Output 05/10/18 05/11/18 05/11/18 22:59 06:59 14:59 Intake Total 120 / 120 100 / 100 Balance 120 / 120 100 / 100 Intake: IV 120 / 120 100 / 100 Ancef Inj 2,000 MG In NS Inj 120 / 120 100 ML @ 240 mls/hr IV.SIG [employer] [facility] Rx#:[id number] Rocephin Inj 1,000 MG In NS Inj 100 / 100 100 ML @ 200 mls/hr IV.SIG Q24H [facility] Rx#:[id number] Other: # Voids 3 3 Date of Last Bowel Movement 05/10/18 05/10/18 Weight 59 kg - Imaging and Cardiology Imaging: Impressions Head CT 05/10/18 06:00 CONCLUSION: 1. Continued evolution of left temporal lobe infarct without intercurrent hemorrhage or significant new mass effect. . Assessment and Plan - Assessment (1) CVA (cerebral vascular accident) Code(s): I63.9 - Cerebral infarction, unspecified Status: Acute (2) Acute ischemic left MCA stroke Code(s): I63.512 - Cerebral infarction due to unspecified occlusion or stenosis of left middle cerebral artery Status: Acute (3) Cerebral parenchymal hemorrhage Code(s): I61.9 - Nontraumatic intracerebral hemorrhage, unspecified Status: Acute - Plan 1) Large left temporal CVA with hemorrhagic conversion Anti-platelets and anti-coagulants held Very little risk factors DANTE showing no source of embolism Loop recorder placed 2) HTN Blood pressure has since stabilized 3) Will follow with me in the office Loop recorder transmission to the office (1) CVA (cerebral vascular accident) Qualifiers: CVA mechanism: unspecified Qualified Code(s): I63.9 - Cerebral infarction, unspecified (3) Cerebral parenchymal hemorrhage Qualifiers: Intracerebral hemorrhage etiology: nontraumatic Cerebral hemorrhage location : cerebral hemisphere, unspecified portion Laterality: left Qualified Code(s) : I61.2 - Nontraumatic intracerebral hemorrhage in hemisphere, unspecified
--- NOTE | 2018-05-11 14:28 | P.DS ---
Date of admission: 05/05/18 11:32 Primary care physician: Serge Black Anticipated date of discharge: 05/11/18 Brief History from admission: This is a 77-year-old female who was brought in by her because of confusion. History is mainly taken from family members at bedside and nursing staff. is not available. She has history of hyperlipidemia and hypothyroidism. Started 2 days ago when she was noted to be confused and disoriented. Symptoms persisted prompting ER evaluation. No fever, chills, cough, abdominal pain, UTI symptoms and diarrhea. At this time she is awake but has receptive aphasia. She is intermittently following commands moving all extremities. Workup shows edema involving the left temporoparietal lobe consistent with possible acute infarct. NIH score of 3. Patient passed swallowing evaluation by speech therapy. All other systems reviewed negative. DS: Diagnosis - Discharge Diagnosis (1) CVA (cerebral vascular accident) Status: Acute (2) Acute ischemic left MCA stroke Status: Acute (3) Cerebral parenchymal hemorrhage Status: Acute DS: Medications - Discharge Medications Prescriptions: aspirin [Enteric Coated Aspirin] 81 mg PO DAILY #30 tab atorvastatin 40 mg PO DAILY #60 tab cefuroxime axetil 250 mg PO Q12H 3 Days #6 tab DS: Summary Hospital Course: Acute left temporal stroke With expressive and receptive aphasia. She had acute confusion and encephalopathy. MRI and CT reviewed showed acute left temporal stroke. Neurology was consulted. Repeat CT showed possible hemorrhagic conversion, evolution of CVA. PT/OT and speech therapy were consulted. We continued a statin. ASA on hold s/t hemorrhagic conversion. Cardiology was consulted and a DANTE/ loop recorder placement was arranged. Hematology was consulted and a hypercoagulable work-up is pending. Rehab medicine was consulted. The pt's encephalopathy improved over the course of her hospital stay. The pt will follow up with neurology in one week. She will have a repeat head CT at that time. She will be discharged on a baby aspirin. She will continue outpt speech therapy. Urinary tract infection Urine culture growing gram-negative rods greater than 100,000 (klebsiella). We started ceftriaxone 1 g daily 05/08. She will complete a course of PO Ceftin. - Time Spent with Patient Total time spent providing and/or coordinating discharge services: Greater than 30 minutes - Quality: VTE Deep Vein Thrombosis/Pulmonary Embolism Present on Admission: No Exam Vital signs: Vital Signs 05/10/18 15:46 05/10/18 16:00 05/10/18 20:00 Temperature 97.7 F 97.7 F 97.6 F Pulse Rate 53 L 53 L 57 L Respiratory Rate 15 15 18 Blood Pressure 143/72 H 135/63 136/60 Pulse Oximetry 96 96 96 05/11/18 00:00 05/11/18 04:00 05/11/18 08:00 Temperature 97.9 F 97.8 F 97.6 F Pulse Rate 50 L 56 L 58 L Respiratory Rate 18 18 17 Blood Pressure 113/60 137/63 117/58 L Pulse Oximetry 95 95 96 05/11/18 12:00 Temperature 97.9 F Pulse Rate 59 L Respiratory Rate 17 Blood Pressure 114/57 L Pulse Oximetry 95 Intake & Output 05/10/18 05/11/18 05/11/18 18:59 06:59 18:59 Intake Total 220 / 220 100 / 100 Balance 220 / 220 100 / 100 Weight 59 kg Intake: IV 220 / 220 100 / 100 Ancef Inj 2,000 MG In NS Inj 120 / 120 100 ML @ 240 mls/hr IV.SIG [facility] Rx#:[id number] Rocephin Inj 1,000 MG In NS Inj 100 / 100 100 / 100 100 ML @ 200 mls/hr IV.SIG Q24H [facility] Rx#:[id number] Other: # Voids 3 3 Date of Last Bowel Movement 05/09/18 05/10/18 05/10/18 Narrative: GENERAL: No acute distress. SKIN: Warm and dry. HEAD: Atraumatic. Normocephalic. EYES: Pupils equal and round. No scleral icterus. No injection or drainage. ENT: No nasal bleeding or discharge. Mucous membranes pink and moist. NECK: Trachea midline. Airway widely patent, no obstructive noises. CARDIOVASCULAR: Regular rate and rhythm. Normal S1, S2. No JVD. RESPIRATORY: No accessory muscle use. Clear to auscultation. Comfortable respiratory pattern. GASTROINTESTINAL: Abdomen soft, non-tender, nondistended. No guarding. MUSCULOSKELETAL: Extremities without clubbing, cyanosis, or edema. No obvious deformities. Warm, well-perfused. NEUROLOGICAL: Awake and alert, oriented to person. No obvious cranial nerve deficits. Motor function grossly intact bilaterally. Results Procedures completed during hospitalization: None - Impressions ITS Impressions Head MRI 05/05/18 00:00 CONCLUSION: 1. Large left temporal stroke as described above. Corresponds well with the CT scan abnormality. There is some decreased signal within the central areas of stroke on the gradient images. Chest X-Ray 05/05/18 08:49 CONCLUSION: Negative examination. Head CTA 05/05/18 09:32 CONCLUSION: 1. Unremarkable head CT examination without evidence for large vessel occlusion. Neck CTA 05/05/18 09:32 CONCLUSION: 1. Negative CTA Carotid. Head CT 05/10/18 06:00 CONCLUSION: 1. Continued evolution of left temporal lobe infarct without intercurrent hemorrhage or significant new mass effect. . Discharge Plan - Discharge Disposition Patient Disposition: 01 Discharge Home - Discharge Condition Condition: Stable - Discharge Order Discharge Orders: Discharge Order (Routine); Ordered 05/11/18 Ordered By: Jamal Cardona - Discharge Details Anticipated Discharge Date: 05/11/18 Discharge Comment: Will need outpt speech therapy - Physicians Team Primary Care Provider: Serge Black Attending Provider: Jamal Cardona Other Providers: Igor Young MD, PhD ; Zoila Morley MD ; Wero Conteh ; Rosi Spencer MD ; Benito Garcia MD ; Adalberto Monaco DO ; Anne-Marie Luna MD
--- NOTE | 2018-05-11 23:07 | ECHRPT ---
Indication: CVA/TIA CONCLUSIONS The left ventricular systolic function is normal with an estimated ejection fraction in the range of 55-60%. Normal left atrial appendage size with no evidence of thrombus formation. Normal atrial septal thickness without atrial level shunting by limited color doppler interrogation. Trace mitral valve regurgitation. Trace aortic valve regurgitation. There is mild tricuspid valve regurgitation. No source for CVA noted BP: / HR: Rhythm: Sinus Technical Quality:Good Medications Complications Proc. Components Anesthesia at the bedside for sedation. FINDINGS LEFT VENTRICLE Normal left ventricular size. The left ventricular systolic function is normal with an estimated ejection fraction in the range of 55-60%. No regional wall motion abnormalities are present. RIGHT VENTRICLE Normal right ventricular size and systolic function. LEFT ATRIUM The left atrial size is normal. RIGHT ATRIUM The right atrial size is normal. ATRIAL APPENDAGES Normal left atrial appendage size with no evidence of thrombus formation. ATRIAL SEPTUM Normal atrial septal thickness without atrial level shunting by limited color doppler interrogation. AORTA The aortic root and proximal ascending aorta are normal in size on limited imaging. MITRAL VALVE Mild thickening of the anterior mitral valve leaflet. Trace mitral valve regurgitation. No mitral valve stenosis. AORTIC VALVE Trileaflet aortic valve. Trace aortic valve regurgitation. No aortic valve stenosis. TRICUSPID VALVE Structurally normal tricuspid valve. There is mild tricuspid valve regurgitation. No tricuspid valve stenosis. VESSELS The pulmonary valve is not well visualized. Trivial pulmonary valve regurgitation. Adalberto Monaco DO (Electronically Signed) Final Date:11 May 2018 23:06
--- NOTE | 2018-05-12 00:06 | MR ---
cc: Adalberto Monaco DO DATE: 05/10/2018 PROCEDURE: Implantation of a [employer] Reveal Linq loop recorder (LNQ11, serial number [id number]). PREPROCEDURE DIAGNOSIS: Cerebrovascular accident of unknown cause. POSTPROCEDURE DIAGNOSIS: Loop recorder implantation for cerebrovascular accident. PROCEDURAL SUMMARY: Michelle Jackson is a pleasant 77-year-old female who presented to [facility] and was found to have an acute CVA. I was asked by neurology to evaluate her for DANTE and loop recorder placement. Risks, benefits, and alternatives were explained to her, and she consented as such. She was brought to the holding area, and anesthesia was given for DANTE. Please see separate report of DANTE. After the DANTE, the anterior chest wall was anesthetized with lidocaine. A small incision was made at the fourth intercostal to the left of the sternum. Loop recorder was injected underneath the skin. Pressure was held for hemostasis. The patient tolerated the procedure well. HARDWARE: Medtronic Reveal LINQ loop recorder (model number LNQ11, serial number [id number]). R-wave 0.53 millivolts. PARAMETERS: Tachycardia greater than 154 beats per minute, bradycardia less than 30 beats per minute, pause greater than 3 seconds. IMPRESSION: 1. Cerebrovascular accident of unknown cause. 2. Loop recorder placement as above. RECOMMENDATIONS: 1. Ms. Jackson underwent DANTE, which showed no cause of cerebrovascular accident. 2. Loop recorder was placed with instructions given to the patient and her on use of the loop recorder. 3. Transmissions will be made to my office to evaluate for possible atrial fibrillation. 4. Ms. Jackson will follow up with me in the office after discharge from the hospital. Thank you for allowing me to see Michelle Jackson. If there are any questions, please do not hesitate to call. Adalberto Monaco DO VGP/rm , 11:11 PM , 11:18 PM
[2018-05-12 15:52] LABS: Dil Russell Viper Venom Conf ( ND (NEGATIVE); Dil Russell Viper Venom Time M ND (CORRECTED); Homocysteine (Cardiovascular) 8.2 umol/L (<10.4); Lupus Anticoagulant PTT Screen 29 seconds (< OR = 40)
[2018-05-12 18:16] LABS: Factor V Leiden Mutation Negative (Negative); Protein C Antigen 97 % (70-150)
== END 2018-05-11 16:36 | disposition home or self-care (01) ==
LOC: PHED 08:30 → PHEDA 11:32 → PHICU 12:36 → N03 05-06 09:27 → N05 05-09 12:26
PROVIDERS: ADMIT Hospitalist; ATTEND Hospitalist